=== PATIENT | male | born 1980 | race Caucasian/White ===

== ENCOUNTER 2016-09-18 17:34 | Emergency (ER) | payer BC, OTHER ==
--- NOTE | 2016-09-18 17:45 | ER Document Report ---
ED Medical Screen (RME) - General Stated Complaint: EYE ISSUES Mode of Arrival: Ambulatory Information source: Patient Notes: c/o blurred vision, trouble focusing, dizziness and lightheadedness for the past 2-3 hours. He states this occurs at rest and is intermittent. This has been going on for several years and previously it is associated with difficulty speaking or losing balance but neither of those are occurring now. He states typically the symptoms resolves when he goes to sleep. He is concerned he is having a stroke. He has never been diagnosed with a stroke. Denies any unilateral weakness, slurred speech. Hx of HTN but does not take his medication but denies DM. I have greeted and performed a rapid initial assessment of this patient. A comprehensive ED assessment and evaluation of the patient, analysis of test results and completion of the medical decision making process will be conducted by additional ED providers. TRAVEL OUTSIDE OF THE [place] IN LAST 30 DAYS: No - Related Data Allergies/Adverse Reactions: No Known Allergies Allergy (Verified 08/22/13 11:48) Past Medical History - Past Medical History Cardiac Medical History: Reports: Hx Hypertension - Off and on, no medications. - Immunizations Immunizations up to date: Yes Hx Diphtheria, Pertussis, Tetanus Vaccination: Yes Physical Exam - Vital signs Vitals: Temp Pulse Resp BP Pulse Ox 97.9 F 100 18 148/93 H 95 09/18/16 17:38 09/18/16 17:38 09/18/16 17:38 09/18/16 17:38 09/18/16 17:38 - Notes Notes: Neuro: no pronator drift, no slurred speech, no facial droop, no unilateral weakness. Gait steady. Course - Vital Signs Vital signs: Temp Pulse Resp BP Pulse Ox 97.9 F 100 18 148/93 H 95 09/18/16 17:38 09/18/16 17:38 09/18/16 17:38 09/18/16 17:38 09/18/16 17:38
--- NOTE | 2016-09-18 18:46 | ER Document Report ---
ED General - General Chief Complaint: Dizziness Stated Complaint: EYE ISSUES Mode of Arrival: Ambulatory Notes: Patient is a 36-year-old male without past medical history who presents with concerns of intermittent dizziness. States he had an episode earlier today that has since resolved. He describes this as a sensation of blurred vision and room spinning. States that he has had episodes similar to this in the past several times per week for the past 5 years but usually they are accompanied by a sensation of difficulty speaking. The lack of difficulty speaking today is what prompted him to come to the emergency department He has been evaluated in the emergency department in the past for this but has never followed up with neurology as instructed. Nothing worsens the symptoms when they are present. He states that they tend to be triggered by emotional episodes or if he is feeling very stressed out. He notes that they do resolve if he goes to sleep. He denies any associated chest pain, shortness of breath or vomiting although does note that if he does not go to sleep when the symptoms start he does progress to developing headache with vomiting. TRAVEL OUTSIDE OF THE [place] IN LAST 30 DAYS: No - Related Data Allergies/Adverse Reactions: No Known Allergies Allergy (Verified 08/22/13 11:48) Past Medical History - General Information source: Patient - Social History Smoking Status: Current Every Day Smoker Chew tobacco use (# tins/day): No Frequency of alcohol use: Rare Lives with: Alone Family History: DM - Prior to the diabetes age 34 Patient has suicidal ideation: No Patient has homicidal ideation: No - Past Medical History Cardiac Medical History: Reports: Hx Hypertension - Off and on, no medications. Renal/ Medical History: Denies: Hx Peritoneal Dialysis - Immunizations Immunizations up to date: Yes Hx Diphtheria, Pertussis, Tetanus Vaccination: Yes Review of Systems - Review of Systems Notes: Constitutional: Negative for fever. HENT: Negative for sore throat. Eyes: Negative for visual changes. Cardiovascular: Negative for chest pain. Respiratory: Negative for shortness of breath. Gastrointestinal: Negative for abdominal pain, vomiting or diarrhea. Genitourinary: Negative for dysuria. Musculoskeletal: Negative for back pain. Skin: Negative for rash. Neurological: Negative for headaches, weakness or numbness. 10 point ROS negative except as marked above and in HPI. Physical Exam - Vital signs Vitals: Temp Pulse Resp BP Pulse Ox 97.9 F 100 18 148/93 H 95 09/18/16 17:38 09/18/16 17:38 09/18/16 17:38 09/18/16 17:38 09/18/16 17:38 Interpretation: Hypertensive Notes: PHYSICAL EXAMINATION: GENERAL: Well-appearing, well-nourished and in no acute distress. HEAD: Atraumatic, normocephalic. EYES: Pupils equal round and reactive to light, extraocular movements intact, sclera anicteric, conjunctiva are normal. ENT: nares patent, oropharynx clear without exudates. Moist mucous membranes. NECK: Normal range of motion, supple without lymphadenopathy LUNGS: Breath sounds clear to auscultation bilaterally and equal. No wheezes rales or rhonchi. HEART: Regular rate and rhythm without murmurs ABDOMEN: Soft, nontender, normoactive bowel sounds. No guarding, no rebound. No masses appreciated. EXTREMITIES: Normal range of motion, no pitting or edema. No cyanosis. NEUROLOGICAL: Face symmetric. Tongue protrudes midline. Extraocular motions intact. Pupils are 2 mm and equally reactive. Normal speech, normal gait. 5 out of 5 strength in both the distal and proximal upper and lower extremities bilaterally. Sensation is grossly intact throughout. Finger to nose testing normal. Pronator drift normal. PSYCH: Normal mood, normal affect. SKIN: Warm, Dry, normal turgor, no rashes or lesions noted. Course - Re-evaluation Re-evalutation: 09/18/16 18:41 Patient presents with several years of intermittent episodes in which he has expressive aphasia versus dysarthria, and blurring of vision, and lightheadedness. States he had a similar episode today although he only had blurred vision and his symptoms resolved. Stroke screen is normal and he has an NIH stroke scale of 0. Neurologic exam is completely unremarkable. He reports a clinical history that appears to be most consistent with either complex migraines, vertebrobasilar insufficiency, versus somatizations or panic disorder. Patient does describe the episodes as being acute in onset and resolved by sleeping. Moreover he states that if he does not sleep when these episodes start, his symptoms progress to nausea and vomiting with an associated headache. This would be most consistent with a complex migraine particularly given that his symptoms are intermittent in nature occurring anywhere between several times a week several times per month and to resolve after sleeping. Patient also notes that his symptoms mostly occur when he feels extremely stressed or highly emotional which could point towards a somatization disorder. I do not believe patient's history is consistent with a TIA or stroke. Alternatively he could have a vertebrobasilar insufficiency and I recommended that he start aspirin prophylactically. I've also referred to neurology and informed him about the critical importance of appropriate follow-up should he have a more concerning diagnosis. I do not believe any labs or imaging are indicated as patient is completely asymptomatic at time of my assessment and he has had this problem for 5-6 years.At this time will discharge with return precautions and follow-up recommendations. Verbal discharge instructions given a the bedside and opportunity for questions given. Medication warnings reviewed. Patient is in agreement with this plan and has verbalized understanding of return precautions and the need for primary care follow-up in the next 24-72 hours. - Vital Signs Vital signs: Temp Pulse Resp BP Pulse Ox 98.3 F 99 20 150/103 H 95 09/18/16 19:00 09/18/16 19:00 09/18/16 19:00 09/18/16 19:00 09/18/16 19:00 - Laboratory Result Diagrams: 09/18/16 17:50 09/18/16 17:50 Discharge - Discharge Clinical Impression: Dizziness, Blurring of vision Condition: Good Disposition: HOME, SELF-CARE Additional Instructions: Your symptoms today need to be better evaluated by a neurologist. Please call the neurologist included in your discharge paperwork tomorrow morning and schedule an appointment as soon as possible. Please also follow up with your primary care doctor. Begin taking aspirin 81 mg daily. Return to the emergency department immediately if you develop persistent weakness, numbness, difficulty speaking, pass out, or have any other symptoms that are worrisome to you. Referrals: KARLO YOUNGER MD [ACTIVE STAFF] - Follow up in 3-5 days
[2016-09-18 19:00] VITALS: BP 150/103
== END 2016-09-18 18:58 | disposition home or self-care (01) ==
LOC: ER 17:34
DX: R42 Dizziness and giddiness (principal); H53.8 Other visual disturbances; R29.818 Other symptoms and signs involving the nervous system; F17.200 Nicotine dependence, unspecified, uncomplicated; I10 Essential (primary) hypertension
CPT/HCPCS: 99284

== ENCOUNTER 2018-05-04 13:11 | Emergency (ER) | payer OTHER ==
[2018-05-04 13:22] VITALS: BP 141/91
[2018-05-04] MEDS ORDERED: LORAZEPAM 1 MG TABLET PO ONE (13:24)
[2018-05-04] MEDS ORDERED: DEXAMETHASONE SOD PHOS INJ 10 MG/1 ML VIAL IM ONE (13:24)
[2018-05-04] MEDS ORDERED: LIDOCAINE 5% (700 MG) TRANSDERMAL ADH..PATCH TP ONE (13:24)
[2018-05-04] MEDS ORDERED: KETOROLAC TROMETHAMINE 60 MG/2 ML SDV IM ONE (13:24)
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
== END 2018-05-04 14:20 | disposition home or self-care (01) ==
LOC: ER 13:11
DX: M54.5 Low back pain (principal); V49.40XA Driver injured in collision with unspecified motor vehicles in traffic accident, initial encounter; G89.29 Other chronic pain; R25.2 Cramp and spasm; I10 Essential (primary) hypertension; F41.9 Anxiety disorder, unspecified; F17.200 Nicotine dependence, unspecified, uncomplicated
CPT/HCPCS: 99283; 96372; J1885; J1100

== ENCOUNTER 2018-08-11 09:45 | Inpatient (IN) | payer BC, OTHER ==
--- NOTE | 2018-08-11 11:13 | ER Document Report ---
ED Medical Screen (RME) - General Chief Complaint: Foot Pain Stated Complaint: LEFT FOOT PAIN Time Seen by Provider: 08/11/18 11:07 Primary Care Provider: MIKE RAMIREZ DO [Primary Care Provider] - Follow up as needed Notes: 38-year-old male patient stepped on a nail 2 weeks ago. His primary care provider prescribed Augmentin and 5 mg Percocet on 07/30/2018. This is in addition to the Percocet 10 mg he takes 4 times daily on a chronic basis. He states there is still swelling and the pain is not improved. The wound was not explored. I have greeted and performed a rapid initial assessment of this patient. A comprehensive ED assessment and evaluation of the patient, analysis of test results and completion of the medical decision making process will be conducted by additional ED providers. TRAVEL OUTSIDE OF THE [place] IN LAST 30 DAYS: No - Related Data Allergies/Adverse Reactions: No Known Allergies Allergy (Verified 08/11/18 09:48) Past Medical History - Social History Chew tobacco use (# tins/day): No Frequency of alcohol use: None Drug Abuse: None - Past Medical History Cardiac Medical History: Reports: Hx Hypertension - Off and on, no medications. Renal/ Medical History: Denies: Hx Peritoneal Dialysis - Immunizations Immunizations up to date: Yes Hx Diphtheria, Pertussis, Tetanus Vaccination: Yes Physical Exam - Vital signs Vitals: Temp Pulse Resp BP Pulse Ox 97.8 F 117 H 18 140/95 H 97 08/11/18 09:51 08/11/18 09:51 08/11/18 09:51 08/11/18 09:51 08/11/18 09:51 Course - Vital Signs Vital signs: Temp Pulse Resp BP Pulse Ox 97.8 F 117 H 18 140/95 H 97 08/11/18 09:51 08/11/18 09:51 08/11/18 09:51 08/11/18 09:51 08/11/18 09:51 Doctor's Discharge - Discharge Referrals: MIKE RAMIREZ DO [Primary Care Provider] - Follow up as needed
--- NOTE | 2018-08-11 12:01 | RADIOLOGY REPORT (SQ) ---
EXAM DESCRIPTION: FOOT RIGHT COMPLETE COMPLETED DATE/TIME: 08/11/2018 11:48 am REASON FOR STUDY: stepped on nail 2 weeks ago COMPARISON: None. NUMBER OF VIEWS: Three views. TECHNIQUE: AP, lateral and oblique radiographic images acquired of the foot with radiographic left markers. LIMITATIONS: None. FINDINGS: MINERALIZATION: Normal. BONES: No acute fracture or dislocation. No worrisome bone lesions. JOINTS: No effusions. SOFT TISSUES: Soft tissue swelling over the ball of the foot. No radiopaque foreign body. OTHER: No other significant finding. IMPRESSION: 1. No fracture or dislocation of the left foot. Soft tissue swelling over the ball of the foot without radiopaque foreign body. No radiographic evidence of osteomyelitis. Please note th at MRI is more sensitive for the evaluation of soft tissue infection and osteomyelitis. 2. Technical note: Examination is ordered and documented as radiographs the right foot, images are submitted with radiographic left markers. TECHNICAL DOCUMENTATION: JOB ID: [id number] [employer]- All Rights Reserved Reading location - IP/workstation name: [email or web address]
--- NOTE | 2018-08-11 12:36 | ER Document Report ---
ED General - General Chief Complaint: Foot Pain Stated Complaint: LEFT FOOT PAIN Time Seen by Provider: 08/11/18 11:07 Notes: Patient is a 38-year-old male that presents to the emergency department for chief complaint of left foot pain after stepping on a nail. Patient states that he suffered a puncture wound about 2 weeks ago to his left foot from a nail that he stepped on he was wearing shoes at the time, he was prescribed Augmentin by h is primary care for a week, which did seem to help with the swelling but his pain continues, and the swelling is come back most of the pain is in his left great toe and at the metatarsal phalangeal joint. He states it is painful to walk on, has been using crutches to help with this. He currently rates his pain as a 6 out of 10, worse with walking on describes as a dull aching sensation that is constant. Past Medical History: Denies chronic medical conditions Past Surgical History: Denies surgical history Social History: Admits to smoking cigarettes daily, denies alcohol or drug use. Family History: Reviewed and noncontributory for presenting illness Allergies: Reviewed, see documented allergy list. REVIEW OF SYSTEMS: Other than noted above, the 12 point review of systems was reviewed with the patient and were negative, all pertinent findings are included in the HPI. PHYSICAL EXAMINATION: Vital signs reviewed, nursing noted reviewed. GENERAL: Well-appearing, well-nourished and in no acute distress. HEAD: Atraumatic, normocephalic. EYES: Eyes appear normal, extraocular movements intact, sclera anicteric, conjunctiva are normal. ENT: nares patent, oropharynx clear without exudates. Moist mucous membranes. NECK: Normal range of motion, supple without lymphadenopathy LUNGS: Breath sounds clear to auscultation bilaterally and equal. No wheezes rales or rhonchi. HEART: Regular rate and rhythm without murmurs ABDOMEN: Soft, nontender, normoactive bowel sounds. No rebound, guarding, or rigidity. No masses appreciated. EXTREMITIES: There is mild tenderness to palpation over the left first metatarsophalangeal joint, and pain with range of motion, mild ecchymosis noted to this area as well as well as edema, there is also tenderness to palpation over the ball of the foot, there is a minimal healing puncture site measuring only a few millimeters in width over the ball the foot, otherwise no acute drainage, or erythema at that site, and mild tenderness only to palpation. Rest of the patient's extremity exam is grossly unremarkable. There is no erythema or lymphangitis noted on the foot. NEUROLOGICAL: No focal neurological deficits. Moves all extremities spontaneously Motor and sensory grossly intact on exam. PSYCH: Normal mood, normal affect. SKIN: Warm, Dry, normal turgor, no rashes or lesions noted on exposed skin TRAVEL OUTSIDE OF THE [place] IN LAST 30 DAYS: No - Related Data Allergies/Adverse Reactions: No Known Allergies Allergy (Verified 08/11/18 09:48) Past Medical History - Social History Smoking Status: Current Every Day Smoker Chew tobacco use (# tins/day): No Frequency of alcohol use: None Drug Abuse: None Family History: DM - Prior to the diabetes age 34 Patient has suicidal ideation: No Patient has homicidal ideation: No - Past Medical History Cardiac Medical History: Reports: Hx Hypertension - Off and on, no medications. Renal/ Medical History: Denies: Hx Peritoneal Dialysis - Immunizations Immunizations up to date: Yes Hx Diphtheria, Pertussis, Tetanus Vaccination: Yes Physical Exam - Vital signs Vitals: Temp Pulse Resp BP Pulse Ox 97.8 F 117 H 18 140/95 H 97 08/11/18 09:51 08/11/18 09:51 08/11/18 09:51 08/11/18 09:51 08/11/18 09:51 Course - Re-evaluation Re-evalutation: Patient seen and examined vital signs reviewed. Laboratory data and imaging were ordered as appropriate for the patient's presenting symptoms and complaint, with consideration of any critical or life threatening conditions that may be associated with their obtained history and exam as noted above. Patient was treated with IV morphine and Zofran for pain initially Results were reviewed when available and demonstrated mild leukocytosis, and elevated ESR and CRP, but only mildly elevated, clinically though this patient's exam and clinical history is concerning for possible septic arthritis versus osteomyelitis from his puncture wound from a dirty nail, and persistent pain and swelling over 2 weeks. Therefore decided to pursue obtaining an MRI of the foot, which was concerning for possible septic arthritis of the first metatarsophalangeal joint of the left foot, and osteomyelitis of the distal portion of the first metatarsal. The patient was re-evaluated and was improved, he was started on IV Zosyn and vancomycin to cover for Pseudomonas as well as MRSA Evaluation was most consistent with acute septic arthritis of the first metatarsal joint, and acute osteomyelitis, orthopedics was consulted, and will decide if operative intervention is needed tomorrow. Results were discussed with the patient at this point after careful consideration I feel that that patient should be admitted to the hospital. This was discussed with the patient that it is in the best interest for their care to be admitted for further evaluation and management. Patient agreed with this plan of care. A call was placed to the admitted physician, Dr. Masterson who graciously accepted the patient onto their service. *Note is created using voice recognition software and may contain spelling, syntax or grammatical errors. Laboratory 08/11/18 08/11/18 08/11/18 13:19 13:19 13:19 WBC 12.5 H RBC 5.27 Hgb 14.9 Hct 44.3 MCV 84 MCH 28.3 MCHC 33.6 RDW 13.3 Plt Count 427 Seg Neutrophils % 62.1 Lymphocytes % 30.5 Monocytes % 5.5 Eosinophils % 1.2 Basophils % 0.7 Absolute Neutrophils 7.7 Absolute Lymphocytes 3.8 Absolute Monocytes 0.7 Absolute Eosinophils 0.1 Absolute Basophils 0.1 ESR 32 H Sodium 138.6 Potassium 4.8 Chloride 103 Carbon Dioxide 24 Anion Gap 12 BUN 16 Creatinine 0.64 Est GFR ( Amer) > 60 Est GFR (Non-Af Amer) > 60 Glucose 162 H Hemoglobin A1c % Calcium 10.0 Total Bilirubin 0.2 Direct Bilirubin 0.2 Neonat Total Bilirubin Not Reportable Neonat Direct Bilirubin Not Reportable Neonat Indirect Bili Not Reportable AST 17 ALT 31 Alkaline Phosphatase 133 H C-Reactive Protein 13.0 H Total Protein 7.2 Albumin 4.3 Triglycerides 116 Cholesterol 213.09 H LDL Cholesterol Direct 183 H VLDL Cholesterol 23.0 HDL Cholesterol 33 L 08/11/18 13:19 WBC RBC Hgb Hct MCV MCH MCHC RDW Plt Count Seg Neutrophils % Lymphocytes % Monocytes % Eosinophils % Basophils % Absolute Neutrophils Absolute Lymphocytes Absolute Monocytes Absolute Eosinophils Absolute Basophils ESR Sodium Potassium Chloride Carbon Dioxide Anion Gap BUN Creatinine Est GFR ( Amer) Est GFR (Non-Af Amer) Glucose Hemoglobin A1c % 7.3 H Calcium Total Bilirubin Direct Bilirubin Neonat Total Bilirubin Neonat Direct Bilirubin Neonat Indirect Bili AST ALT Alkaline Phosphatase C-Reactive Protein Total Protein Albumin Triglycerides Cholesterol LDL Cholesterol Direct VLDL Cholesterol HDL Cholesterol Foot X-Ray 08/11/18 11:23 IMPRESSION: 1. No fracture or dislocation of the left foot. Soft tissue swelling over the ball of the foot without radiopaque foreign body. No radiographic evidence of osteomyelitis. Please note that MRI is more sensitive for the evaluation of soft tissue infection and osteomyelitis. 2. Technical note: Examination is ordered and documented as radiographs the right foot, images are submitted with radiographic left markers. Lower Extremity MRI 08/11/18 14:49 IMPRESSION: Abnormal bone marrow signal in the plantar aspect of the 1st metatarsal head worrisome for osteomyelitis. 1st metatarsophalangeal joint effusion worrisome for septic arthritis. Soft tissue edema in the deep forefoot soft tissues surrounding the 1st metatarsophalangeal joint without soft tissue abscess. - Vital Signs Vital signs: Temp Pulse Resp BP Pulse Ox 98.8 F 103 H 16 137/72 H 95 08/11/18 18:26 08/11/18 18:26 08/11/18 18:26 08/11/18 18:26 08/11/18 18:26 - Laboratory Result Diagrams: 08/11/18 13:19 08/11/18 13:19 Laboratory results interpreted by me: 08/11/18 08/11/18 08/11/18 13:19 13:19 13:19 WBC 12.5 H ESR 32 H Glucose 162 H Hemoglobin A1c % Alkaline Phosphatase 133 H C-Reactive Protein 13.0 H Cholesterol 213.09 H LDL Cholesterol Direct 183 H HDL Cholesterol 33 L 08/11/18 13:19 WBC ESR Glucose Hemoglobin A1c % 7.3 H Alkaline Phosphatase C-Reactive Protein Cholesterol LDL Cholesterol Direct HDL Cholesterol Discharge - Discharge Clinical Impression: Septic arthritis Qualifiers: Septic arthritis location: foot Septic arthritis organism: due to unspecified organism Laterality: left Qualified Code(s): M00.9 - Pyogenic arthritis, unspecified Osteomyelitis Qualifiers: Osteomyelitis type: other acute Osteomyelitis location: foot Laterality: left Qualified Code(s): M86.172 - Other acute osteomyelitis, left ankle and foot Leukocytosis Qualifiers: Leukocytosis type: unspecified Qualified Code(s): D72.829 - Elevated white blood cell count, unspecified Condition: Stable Disposition: ADMITTED INPATIENT Admitting Provider: Hospitalist - Dr. Masterson Unit Admitted: Medical Floor
[2018-08-11 14:01] LABS: ABSOLUTE BASOPHILS # (AUTO) 0.1 10^3/uL (0.0-0.2); ABSOLUTE EOSINOPHILS # (AUTO) 0.1 10^3/uL (0.0-0.6); ABSOLUTE LYMPHOCYTES (AUTO) 3.8 10^3/uL (0.5-4.7); ABSOLUTE MONOCYTES (AUTO) 0.7 10^3/uL (0.1-1.4); ABSOLUTE NEUT (AUTO) 7.7 10^3/uL (1.7-8.2); BASOPHILS % (AUTO) 0.7 % (0-2); EOSINOPHILS % (AUTO) 1.2 % (0-6); HEMATOCRIT 44.3 % (37.9-51.0); HEMOGLOBIN 14.9 g/dL (13.5-17.0); LYMPHOCYTES % (AUTO) 30.5 % (13-45); MEAN CORPUSCULAR HEMOGLOBIN 28.3 pg (27.0-33.4); MEAN CORPUSCULAR HGB CONC 33.6 g/dL (32.0-36.0); MEAN CORPUSCULAR VOLUME 84 fl (80-97); MONOCYTES % (AUTO) 5.5 % (3-13); PLATELET COUNT 427 10^3/uL (150-450); RED BLOOD COUNT 5.27 10^6/uL (4.35-5.55); RED CELL DISTRIBUTION WIDTH 13.3 % (11.5-14.0); SEGMENTED NEUTROPHILS % (AUTO) 62.1 % (42-78); TOTAL CELLS COUNTED % (AUTO) 100 %; WHITE BLOOD COUNT 12.5 10^3/uL (4.0-10.5)
[2018-08-11 14:44] LABS: ERYTHROCYTE SEDIMENTATION RATE 32 mm/hr (0-15)
--- NOTE | 2018-08-11 17:01 | RADIOLOGY REPORT (SQ) ---
EXAM DESCRIPTION: MRI LT LOWER EXTREMITY WITHOUT COMPLETED DATE/TIME: 08/11/2018 4:36 pm REASON FOR STUDY: right foot injury concern for osteomyelitis TECHNIQUE: Multiplanar imaging of the left forefoot to include fat and fluid sensitive sequences. LIMITATIONS: Motion artifact throughout the study FINDINGS: BONE MARROW: There is abnormal bone marrow signal in the plantar aspect of the 1st metatar rito head, best shown on coronal image 19/32, and axial images 15 through 17. This is worrisome for i nfection/osteomyelitis. SOFT TISSUES: There is edema in the deep soft tissues surrounding the 1st metatarsal head, and a 1st MTP joint effusion, best shown on sagittal images 9-15. No fluid pocket worrisome for soft tissue ab scess. OTHER: No other significant finding. IMPRESSION: Abnormal bone marrow signal in the plantar aspect of the 1st metatarsal head worrisome f or osteomyelitis. 1st metatarsophalangeal joint effusion worrisome for septic arthritis. Soft tissue edema in the deep forefoot soft tissues surrounding the 1st metatarsophalangeal joint wit hout soft tissue abscess. TECHNICAL DOCUMENTATION: JOB ID: [id number]- All Rights Reserved COMPARISON: None. 08/11/2018 left foot plain films Reading location - IP/workstation name: [email or web address]
[2018-08-11] MEDS ORDERED: PIPERACILLIN/TAZOBACTAM 3.375 GM VIAL IV ONE (17:35)
[2018-08-11] MEDS ORDERED: VANCOMYCIN HCL INJ 1000 MG VIAL IV ONE (17:35)
[2018-08-11] MEDS ORDERED: MORPHINE SULFATE 10 MG/ML INJ IV ONE (17:36)
[2018-08-11] MEDS ORDERED: ONDANSETRON HCL INJ/PF 4 MG/2 ML SDV IV ONE (17:36)
--- NOTE | 2018-08-11 18:33 | PDOC H&P ---
History of Present Illness Admission Date/PCP: 08/11/18 18:16 MIKE RAMIREZ DO History of Present Illness: RENO ROD is a 38 year old male past medical history of hypertension not treated. Patient is presenting to ED complaining of stepping on a nail with his right big toe about 2 weeks ago. Patient went to see his primary caregiver who started him on Augmentin and he was told if his pain and swelling does not get better to go to ED. Patient is complaining of persistent right great toe pain 10 out of 10, pulsating, decreased range of motion. Patient has been using crutches to ambulate. Patient was given tetanus shot by his PCP. Denying any other joint pain, swelling, fever, chills, nausea, vomiting, diarrhea, constipation or any urinary symptoms. Osteomyelitis was suspected in ED and an MRI of right foot was done which showed first metatarsal head worrisome for septic arthritis/osteomyelitis. Past Medical History Cardiac Medical History: Reports: Hypertension - Off and on, no medications. Social History Smoking Status: Current Every Day Smoker Family History Family History: DM - Prior to the diabetes age 36 Parental Family History Reviewed: Yes Children Family History Reviewed: Yes Sibling(s) Family History Reviewed.: Yes Medication/Allergy Home Medications: Dextroamphetamine/Amphetamine [Adderall 30 mg Tablet] 30 mg PO BID 08/11/18 Oxycodone HCl/Acetaminophen [Percocet 10-325 Mg Tablet] 1 each PO Q6HP PRN 08/11/18 Allergies/Adverse Reactions: No Known Allergies Allergy (Verified 08/11/18 09:48) Review of Systems Constitutional: ABSENT: chills, fever(s), headache(s), weight gain, weight loss Cardiovascular: ABSENT: chest pain, dyspnea on exertion, edema, orthropnea, palpitations Respiratory: ABSENT: cough, hemoptysis Gastrointestinal: ABSENT: abdominal pain, constipation, diarrhea, hematemesis, hematochezia, nausea, vomiting Neurological: ABSENT: abnormal gait, abnormal speech, confusion, dizziness, focal weakness, syncope Physical Exam Vital Signs: Temp Pulse Resp BP Pulse Ox 97.8 F 117 H 18 140/95 H 97 08/11/18 09:51 08/11/18 09:51 08/11/18 09:51 08/11/18 09:51 08/11/18 09:51 Intake & Output 08/10/18 08/11/18 08/12/18 06:59 06:59 06:59 Weight 112 kg General appearance: PRESENT: no acute distress, obese, well-developed, well- nourished Head exam: PRESENT: atraumatic, normocephalic Neck exam: ABSENT: carotid bruit, JVD, lymphadenopathy, thyromegaly Respiratory exam: PRESENT: clear to auscultation aubree. ABSENT: rales, rhonchi, wheezes Cardiovascular exam: PRESENT: RRR. ABSENT: diastolic murmur, rubs, systolic murmur Pulses: PRESENT: normal dorsalis pedis pul Vascular exam: PRESENT: normal capillary refill GI/Abdominal exam: PRESENT: normal bowel sounds, soft. ABSENT: distended, guarding, mass, organolmegaly, rebound, tenderness Extremities exam: PRESENT: full ROM, other - Right great toe minimal erythema, limited range of motion, no active discharge. Normal distal pulses.. ABSENT: calf tenderness, clubbing, pedal edema Results Laboratory Results: 08/11/18 13:19 08/11/18 08/11/18 13:19 13:19 WBC 12.5 H RBC 5.27 Hgb 14.9 Hct 44.3 MCV 84 MCH 28.3 MCHC 33.6 RDW 13.3 Plt Count 427 Seg Neutrophils % 62.1 Lymphocytes % 30.5 Monocytes % 5.5 Eosinophils % 1.2 Basophils % 0.7 Absolute Neutrophils 7.7 Absolute Lymphocytes 3.8 Absolute Monocytes 0.7 Absolute Eosinophils 0.1 Absolute Basophils 0.1 C-Reactive Protein 13.0 H Impressions: Foot X-Ray 08/11/18 11:23 IMPRESSION: 1. No fracture or dislocation of the left foot. Soft tissue swelling over the ball of the foot without radiopaque foreign body. No radiographic evidence of osteomyelitis. Please note that MRI is more sensitive for the evaluation of soft tissue infection and osteomyelitis. 2. Technical note: Examination is ordered and documented as radiographs the right foot, images are submitted with radiographic left markers. Lower Extremity MRI 08/11/18 14:49 IMPRESSION: Abnormal bone marrow signal in the plantar aspect of the 1st metatarsal head worrisome for osteomyelitis. 1st metatarsophalangeal joint effusion worrisome for septic arthritis. Soft tissue edema in the deep forefoot soft tissues surrounding the 1st metatarsophalangeal joint without soft tissue abscess. Assessment & Plan - Diagnosis (1) Osteomyelitis Qualifiers: Osteomyelitis type: other acute Osteomyelitis location: foot Laterality: left Qualified Code(s): M86.172 - Other acute osteomyelitis, left ankle and foot Is this a current diagnosis for this admission?: Yes Plan: Right great toe MRI suspected of osteomyelitis. Minimal leukocytosis with no bandemia. CRP 13.0. Broad-spectrum IV antibiotics. Blood cultures. Ortho consulted for possible intervention.. Will order A1c, lipid panel, CMP. (2) Septic arthritis Qualifiers: Septic arthritis location: foot Septic arthritis organism: due to unspecified organism Laterality: left Qualified Code(s): M00.9 - Pyogenic arthritis, unspecified Is this a current diagnosis for this admission?: Yes Plan: As per problem #1. (3) Obesity Is this a current diagnosis for this admission?: Yes Plan: Diet and lifestyle modification. A1c and lipid panel. (4) HTN (hypertension) Is this a current diagnosis for this admission?: Yes Plan: As per patient has history of hypertension however he is not on any medication. Monitor vital status will start on antihypertensive medications if needed.
[2018-08-11] MEDS ORDERED: PROMETHAZINE HCL 25 MG TABLET PO PRN (18:37)
[2018-08-11] MEDS ORDERED: VANCOMYCIN HCL 0 MG in DEXTROSE 5%-WATER 250 ML IV NR (18:45)
[2018-08-11 18:47] LABS: ALANINE AMINOTRANSFERASE 31 U/L (21-72); ALBUMIN 4.3 g/dL (3.5-5.0); ALKALINE PHOSPHATASE 133 U/L (38-126); ANION GAP 12 (5-19); ASPARTATE AMINO TRANSFERASE 17 U/L (17-59); BILIRUBIN,DIRECT 0.2 mg/dL (0.0-0.4); BILIRUBIN,TOTAL 0.2 mg/dL (0.2-1.3); BLOOD UREA NITROGEN 16 mg/dL (7-20); CARBON DIOXIDE 24 mmol/L (22-30); CHLORIDE 103 mmol/L (98-107); CHOLESTEROL 213.09 mg/dL (0-200); GLUCOSE 162 mg/dL (75-110); POTASSIUM 4.8 mmol/L (3.6-5.0); SODIUM 138.6 mmol/L (137-145); TOTAL PROTEIN 7.2 g/dL (6.3-8.2); TRIGLYCERIDES 116 mg/dL (<150)
[2018-08-11 18:59] LABS: DIRECT LDL 183 mg/dL (<100)
[2018-08-11] MEDS: ENOXAPARIN SODIUM INJ 40 MG/0.4 ML DISP.SYRIN SUBCUT SCH (21:40)
[2018-08-11] MEDS: MORPHINE SULFATE 10 MG/ML INJ IV PRN (21:40)
[2018-08-12] MEDS: PIPERACILLIN SODIUM/TAZOBACTAM 4.5 GM in NORMAL SALINE 100 ML IV SCH ×4 (00:43→18:50)
[2018-08-12] MEDS: MORPHINE SULFATE 10 MG/ML INJ IV PRN ×8 (00:47→21:22)
[2018-08-12] MEDS: VANCOMYCIN HCL 1,500 MG in DEXTROSE 5%-WATER 250 ML IV SCH ×4 (02:43→21:22)
[2018-08-12] MEDS ORDERED: LANSOPRAZOLE 30 MG TAB.RAP.DR PO SCH (06:00)
[2018-08-12 06:22] LABS: HEMATOCRIT 40.6 % (37.9-51.0); HEMOGLOBIN 13.4 g/dL (13.5-17.0); MEAN CORPUSCULAR HEMOGLOBIN 27.9 pg (27.0-33.4); MEAN CORPUSCULAR HGB CONC 33.2 g/dL (32.0-36.0); MEAN CORPUSCULAR VOLUME 84 fl (80-97); PLATELET COUNT 396 10^3/uL (150-450); RED BLOOD COUNT 4.83 10^6/uL (4.35-5.55); RED CELL DISTRIBUTION WIDTH 13.4 % (11.5-14.0); WHITE BLOOD COUNT 13.3 10^3/uL (4.0-10.5)
--- NOTE | 2018-08-12 06:45 | PDOC CONSULTATION ---
Consultation Consult Date: 08/12/18 Consult reason:: Puncture wound left foot History of Present Illness Admission Date/PCP: 08/11/18 18:16 MIKE RAMIREZ DO History of Present Illness: RENO ROD is a 38 year old male Patient is a 38-year-old white male who presents status post a puncture wound to the plantar surface of the right foot increasing pain about the left forefoot. He was evaluated in the emergency room with a sedimentation rate of 32, CRP of 13, hemoglobin A1c of 7.3, and an MRI scan suggesting osteomyelitis. Orthopedics is consulted to cooperate with management of the infection and osteomyelitis. Past Medical History Cardiac Medical History: Reports: Hypertension - Off and on, no medications. Endocrine Medical History: Reports: Diabetes Mellitus Type 2 Past Surgical History Past Surgical History: Reports: None Social History Information Source: Patient, [facility] Records Smoking Status: Current Every Day Smoker Drugs: None Family History Family History: DM - Prior to the diabetes age 36 Parental Family History Reviewed: No Children Family History Reviewed: No Sibling(s) Family History Reviewed.: No Medication/Allergy Home Medications: Dextroamphetamine/Amphetamine [Adderall 30 mg Tablet] 30 mg PO BID 08/11/18 Oxycodone HCl/Acetaminophen [Percocet 10-325 Mg Tablet] 1 each PO Q6HP PRN 08/11/18 Allergies/Adverse Reactions: No Known Allergies Allergy (Verified 08/11/18 20:53) Review of Systems All systems: as per [facility] Physical Exam Vital Signs: Temp Pulse Resp BP Pulse Ox 36.8 C 91 18 117/70 97 08/11/18 21:44 08/11/18 21:44 08/11/18 21:44 08/11/18 21:44 08/11/18 21:44 Intake & Output 08/10/18 08/11/18 08/12/18 06:59 06:59 06:59 Intake Total 350 Balance 350 Weight 112 kg Physical Exam: Patient is an overweight middle-aged white male lying in a hospital bed with a significant odor of tobacco. Patient does not appear to be in significant distress at this point. General appearance: PRESENT: no acute distress, obese, well-nourished Respiratory exam: PRESENT: unlabored Cardiovascular exam: PRESENT: RRR Pulses: PRESENT: +1 pedal pulses bilateral Vascular exam: PRESENT: normal capillary refill GI/Abdominal exam: PRESENT: soft Rectal exam: PRESENT: deferred Extremities exam: PRESENT: other - The puncture wound on the plantar surface of the left foot in the region of the tarsometatarsal is evident. There is really not surrounding erythema or induration. There is no drainage. There is tenderness to palpation. There is some pain associate with passive range of motion of the digits. There is brisk capillary refill. Neurological exam: PRESENT: alert, awake, oriented to person, oriented to place, oriented to time, oriented to situation. ABSENT: motor sensory deficit Psychiatric exam: PRESENT: appropriate affect, normal mood. ABSENT: homicidal ideation, suicidal ideation Skin exam: PRESENT: dry, intact, warm. ABSENT: cyanosis, rash Results Laboratory Results: 08/12/18 06:06 08/11/18 08/11/18 08/11/18 13:19 13:19 13:19 WBC 12.5 H RBC 5.27 Hgb 14.9 Hct 44.3 MCV 84 MCH 28.3 MCHC 33.6 RDW 13.3 Plt Count 427 Seg Neutrophils % 62.1 Lymphocytes % 30.5 Monocytes % 5.5 Eosinophils % 1.2 Basophils % 0.7 Absolute Neutrophils 7.7 Absolute Lymphocytes 3.8 Absolute Monocytes 0.7 Absolute Eosinophils 0.1 Absolute Basophils 0.1 Sodium 138.6 Potassium 4.8 Chloride 103 Carbon Dioxide 24 Anion Gap 12 BUN 16 Creatinine 0.64 Est GFR ( Amer) > 60 Est GFR (Non-Af Amer) > 60 Glucose 162 H Calcium 10.0 Total Bilirubin 0.2 AST 17 ALT 31 Alkaline Phosphatase 133 H C-Reactive Protein 13.0 H Total Protein 7.2 Albumin 4.3 Triglycerides 116 Cholesterol 213.09 H LDL Cholesterol Direct 183 H VLDL Cholesterol 23.0 HDL Cholesterol 33 L 08/12/18 06:06 WBC 13.3 H RBC 4.83 Hgb 13.4 L Hct 40.6 MCV 84 MCH 27.9 MCHC 33.2 RDW 13.4 Plt Count 396 Seg Neutrophils % Lymphocytes % Monocytes % Eosinophils % Basophils % Absolute Neutrophils Absolute Lymphocytes Absolute Monocytes Absolute Eosinophils Absolute Basophils Sodium Potassium Chloride Carbon Dioxide Anion Gap BUN Creatinine Est GFR ( Amer) Est GFR (Non-Af Amer) Glucose Calcium Total Bilirubin AST ALT Alkaline Phosphatase C-Reactive Protein Total Protein Albumin Triglycerides Cholesterol LDL Cholesterol Direct VLDL Cholesterol HDL Cholesterol Impressions: Foot X-Ray 08/11/18 11:23 IMPRESSION: 1. No fracture or dislocation of the left foot. Soft tissue swell ing over the ball of the foot without radiopaque foreign body. No radiographic evidence of osteomyelitis. Please note that MRI is more sensitive for the evaluation of soft tissue infection and osteomyelitis. 2. Technical note: Examination is ordered and documented as radiographs the right foot, images are submitted with radiographic left markers. Lower Extremity MRI 08/11/18 14:49 IMPRESSION: Abnormal bone marrow signal in the plantar aspect of the 1st metatarsal head worrisome for osteomyelitis. 1st metatarsophalangeal joint effusion worrisome for septic arthritis. Soft tissue edema in the deep forefoot soft tissues surrounding the 1st metatarsophalangeal joint without soft tissue abscess. Status: Imported from PACS Assessment & Plan - Diagnosis (1) Osteomyelitis Qualifiers: Osteomyelitis type: other acute Osteomyelitis location: foot Laterality: left Qualified Code(s): M86.172 - Other acute osteomyelitis, left ankle and foot Is this a current diagnosis for this admission?: Yes Plan: 38-year-old white male diabetic with a puncture wound to the plantar surface of the left foot increasing pain, slightly elevated inflammatory parameters, slightly elevated hemoglobin A1c, and an MRI scan showing increased signal suggesting underlying osteomyelitis. Overall the physical examination is not particularly impressive. However if the patient does have an underlying mass it is the treatment for this is primarily surgical to remove the sequestrum. I will discuss the situation with Dr. streeter who is coming area loss prevention manager today. - Time Time Spent: 50 to 70 Minutes Anticipated discharge: Home with Homehealth Within: Other
[2018-08-12 06:46] LABS: ANION GAP 7 (5-19); BLOOD UREA NITROGEN 16 mg/dL (7-20); CALCIUM 9.2 mg/dL (8.4-10.2); CARBON DIOXIDE 27 mmol/L (22-30); CHLORIDE 102 mmol/L (98-107); GLUCOSE 127 mg/dL (75-110); POTASSIUM 4.6 mmol/L (3.6-5.0); SODIUM 136.2 mmol/L (137-145)
[2018-08-12] MEDS: ENOXAPARIN SODIUM INJ 40 MG/0.4 ML DISP.SYRIN SUBCUT SCH (09:07)
[2018-08-12] MEDS: NICOTINE 21 MG/24 HR PATCH.TD24 TD SCH (10:55)
[2018-08-12] MEDS ORDERED: GLUCAGON,HUMAN RECOMB 1 MG INJ IM PRN (11:01)
[2018-08-12] MEDS ORDERED: DEXTROSE 40% GEL 15 GM TUBE PO PRN ×2 (11:01)
[2018-08-12] MEDS ORDERED: DEXTROSE 50%-WATER 25 GM/50 ML DISP.SYRIN IV PRN ×2 (11:01)
[2018-08-12] MEDS: INSULIN LISPRO 100 UNIT/ML 3 ML VIAL SUBCUT PRN (12:09)
[2018-08-12] MEDS: OXYCODONE-ACETAMINOPHEN 5-325 MG TABLET PO PRN ×2 (12:11→19:52)
[2018-08-12] MEDS ORDERED: NICOTINE 21 MG/24 HR PATCH.TD24 TD ONE (15:00)
--- NOTE | 2018-08-12 18:19 | PDOC PROGRESS REPORT ---
Subjective Progress Note for:: 08/12/18 Subjective:: Patient resting comfortably in bed. Only complaint is weightbearing on the left foot at the first MTP joint. Reason For Visit: OSTEOMYELITIS Physical Exam Vital Signs: Temp Pulse Resp BP Pulse Ox 36.5 C 85 16 112/66 97 08/12/18 11:23 08/12/18 11:23 08/12/18 11:23 08/12/18 11:23 08/12/18 11:23 Intake & Output 08/11/18 08/12/18 08/13/18 06:59 06:59 06:59 Intake Total 350 700 Balance 350 700 Weight 99.3 kg Adult Front & Back Image: 1 - Some mild erythema about 1 cm in diameter on the low medial aspect of the f irst MTP joint with tenderness to palpation on the plantar aspect of the first MTP joint. Range of motion of the first MTP joint is somewhat painful. He is neurovascular intact distally and very little swelling noticed with no fluctuance or mass palpated Results Laboratory Results: 08/12/18 06:06 08/12/18 06:06 08/11/18 08/12/18 08/12/18 13:19 06:06 06:06 WBC 13.3 H RBC 4.83 Hgb 13.4 L Hct 40.6 MCV 84 MCH 27.9 MCHC 33.2 RDW 13.4 Plt Count 396 Sodium 138.6 136.2 L Potassium 4.8 4.6 Chloride 103 102 Carbon Dioxide 24 27 Anion Gap 12 7 BUN 16 16 Creatinine 0.64 0.81 Est GFR ( Amer) > 60 > 60 Est GFR (Non-Af Amer) > 60 > 60 Glucose 162 H 127 H Calcium 10.0 9.2 Total Bilirubin 0.2 AST 17 ALT 31 Alkaline Phosphatase 133 H Total Protein 7.2 Albumin 4.3 Triglycerides 116 Cholesterol 213.09 H LDL Cholesterol Direct 183 H VLDL Cholesterol 23.0 HDL Cholesterol 33 L Impressions: Foot X-Ray 08/11/18 11:23 IMPRESSION: 1. No fracture or dislocation of the left foot. Soft tissue swelling over the ball of the foot without radiopaque foreign body. No radiographic evidence of osteomyelitis. Please note that MRI is more sensitive for the evaluation of soft tissue infection and osteomyelitis. 2. Technical note: Examination is ordered and documented as radiographs the right foot, images are submitted with radiographic left markers. Lower Extremity MRI 08/11/18 14:49 IMPRESSION: Abnormal bone marrow signal in the plantar aspect of the 1st metatarsal head worrisome for osteomyelitis. 1st metatarsophalangeal joint effusion worrisome for septic arthritis. Soft tissue edema in the deep forefoot soft tissues surrounding the 1st metatarsophalangeal joint without soft tissue abscess. Assessment & Plan - Plan Summary Plan Summary: 38-year-old gentleman with a puncture wound on the left foot for 2 weeks. I agree with my partner that the clinical presentation is mild and I even believe the MRI does not show ostium of the bone but there is some reactive fluid and there is some pain in the MTP joint that may be worrisome for septic arthritis. I did discuss that it could be either septic arthritis versus reactive fluid fr om potential early infection and we would monitor him and evaluate him tomorrow. If his symptoms do not continue to improve after 48 hours of IV antibiotics I did discuss with him on Thursday to schedule a I&D of his first MTP joint of the left foot.
--- NOTE | 2018-08-12 19:28 | PDOC PROGRESS REPORT ---
Subjective Progress Note for:: 08/12/18 Subjective:: RENO ROD is a 38 year old male past medical history of hypertension not treated, opiate dependency due to chronic back pain. Patient is presenting to ED complaining of stepping on a nail with his right big toe about 2 weeks ago. Patient went to see his primary caregiver who started him on Augmentin and he was told if his pain and swelling does not get better to go to ED. Patient is complaining of persistent right great toe pain 10 out of 10, pulsating, decreased range of motion. Patient has been using crutches to ambulate. Patient was given tetanus shot by his PCP. Denying any other joint pain, swelling, fever, chills, nausea, vomiting, diarrhea, constipation or any urinary symptoms. Osteomyelitis was suspected in ED and an MRI of right foot was done which showed first metatarsal head worrisome for septic arthritis/osteomyelitis. 08/12/2018. No acute events overnight. Patient still complaining of persistent right toe pain patient is requiring high dose of narcotics possibly due to high tolerance for narcotics as patient has history of opiate dependency due to chronic back pain. On my encounter patient is comfortably sitting in his bed w as still complaining of persistent right toe pain. Patient is p.o. tolerant, having normal bowel and bladder function. Patient was counseled about his newly diagnosed diabetes and he received diabetic education. Patient is currently receiving IV antibiotics and pending or throw intervention possibly to Thursday. Has any fever, chills, nausea, vomiting, diarrhea, constipation, chest pain, shortness of breath or any urinary symptoms. Reason For Visit: OSTEOMYELITIS Physical Exam Vital Signs: Temp Pulse Resp BP Pulse Ox 97.5 F 85 16 126/66 H 95 08/12/18 16:06 08/12/18 16:06 08/12/18 11:23 08/12/18 16:06 08/12/18 16:06 Intake & Output 08/11/18 08/12/18 08/13/18 06:59 06:59 06:59 Intake Total 350 1150 Balance 350 1150 Weight 99.3 kg General appearance: PRESENT: no acute distress, well-developed, well-nourished Head exam: PRESENT: atraumatic, normocephalic Respiratory exam: PRESENT: clear to auscultation aubree. ABSENT: rales, rhonchi, wheezes Cardiovascular exam: PRESENT: RRR. ABSENT: diastolic murmur, rubs, systolic murmur Pulses: PRESENT: normal dorsalis pedis pul GI/Abdominal exam: PRESENT: normal bowel sounds, soft. ABSENT: distended, guarding, mass, organolmegaly, rebound, tenderness Musculoskeletal exam: PRESENT: full ROM, tenderness, other - Minimal erythema at the base of the right great toe. Tender to palpation and passive range of motion. Neurovascularly intact. Results Laboratory Results: 08/12/18 06:06 08/12/18 06:06 08/12/18 08/12/18 06:06 06:06 WBC 13.3 H RBC 4.83 Hgb 13.4 L Hct 40.6 MCV 84 MCH 27.9 MCHC 33.2 RDW 13.4 Plt Count 396 Sodium 136.2 L Potassium 4.6 Chloride 102 Carbon Dioxide 27 Anion Gap 7 BUN 16 Creatinine 0.81 Est GFR ( Amer) > 60 Est GFR (Non-Af Amer) > 60 Glucose 127 H Calcium 9.2 Impressions: Foot X-Ray 08/11/18 11:23 IMPRESSION: 1. No fracture or dislocation of the left foot. Soft tissue swelling over the ball of the foot without radiopaque foreign body. No radiographic evidence of osteomyelitis. Please note that MRI is more sensitive for the evaluation of soft tissue infection and osteomyelitis. 2. Technical note: Examination is ordered and documented as radiographs the right foot, images are submitted with radiographic left markers. Lower Extremity MRI 08/11/18 14:49 IMPRESSION: Abnormal bone marrow signal in the plantar aspect of the 1st metatarsal head worrisome for osteomyelitis. 1st metatarsophalangeal joint effusion worrisome for septic arthritis. Soft tissue edema in the deep forefoot soft tissues surrounding the 1st metatarsophalangeal joint without soft tissue abscess. Assessment & Plan - Diagnosis (1) Osteomyelitis Qualifiers: Osteomyelitis type: other acute Osteomyelitis location: foot Laterality: left Qualified Code(s): M86.172 - Other acute osteomyelitis, left ankle and foot Is this a current diagnosis for this admission?: Yes Plan: Right great toe MRI suspected of osteomyelitis. Minimal leukocytosis with no bandemia. CRP 13.0. Day 2 of IV antibiotics. Cultures negative. Ortho consulted for possible intervention. (2) Septic arthritis Qualifiers: Septic arthritis location: foot Septic arthritis organism: due to unspecified organism Laterality: left Qualified Code(s): M00.9 - Pyogenic arthritis, unspecified Is this a current diagnosis for this admission?: Yes Plan: As per problem #1. (3) Obesity Is this a current diagnosis for this admission?: Yes Plan: Diet and lifestyle modification. (4) HTN (hypertension) Is this a current diagnosis for this admission?: Yes Plan: Currently normotensive. Monitor vital status. (5) Diabetes Is this a current diagnosis for this admission?: Yes Plan: Newly diagnosed. Family history of diabetes. Hemoglobin A1c 7.3%. Continue Accu-Chek. Will start on metformin on discharge. Diabetic education r eceived. Outpatient PCP follow-up. Patient advised on lifestyle modification. (6) Hyperlipidemia Is this a current diagnosis for this admission?: Yes Plan: ASCVD score of 5.3 % will start on low-dose statins. Patient asked to follow-up with PCP for evaluation of liver function tests and also advised on lifestyle and diet modification.
[2018-08-12] MEDS: ATORVASTATIN CALCIUM 20 MG TABLET PO SCH (21:22)
[2018-08-12 22:06] LABS: VANCOMYCIN,TROUGH 19.2 ug/mL (5.0-20.0)
[2018-08-13] MEDS: MORPHINE SULFATE 10 MG/ML INJ IV PRN ×9 (00:13→22:58)
[2018-08-13] MEDS: PIPERACILLIN SODIUM/TAZOBACTAM 4.5 GM in NORMAL SALINE 100 ML IV SCH ×5 (00:15→23:05)
[2018-08-13] MEDS: VANCOMYCIN HCL 1,500 MG in DEXTROSE 5%-WATER 250 ML IV SCH ×3 (02:47→18:48)
[2018-08-13] MEDS: OXYCODONE-ACETAMINOPHEN 5-325 MG TABLET PO PRN ×3 (02:47→19:33)
[2018-08-13] MEDS: LANSOPRAZOLE 30 MG TAB.RAP.DR PO SCH (05:24)
[2018-08-13] MEDS: NICOTINE 21 MG/24 HR PATCH.TD24 TD SCH (09:41)
[2018-08-13] MEDS: ENOXAPARIN SODIUM INJ 40 MG/0.4 ML DISP.SYRIN SUBCUT SCH (10:59)
[2018-08-13 13:50] LABS: ABSOLUTE BASOPHILS # (AUTO) 0.1 10^3/uL (0.0-0.2); ABSOLUTE EOSINOPHILS # (AUTO) 0.2 10^3/uL (0.0-0.6); ABSOLUTE MONOCYTES (AUTO) 0.6 10^3/uL (0.1-1.4); ABSOLUTE NEUT (AUTO) 4.8 10^3/uL (1.7-8.2); EOSINOPHILS % (AUTO) 2.1 % (0-6); HEMOGLOBIN 12.7 g/dL (13.5-17.0); LYMPHOCYTES % (AUTO) 41.1 % (13-45); MEAN CORPUSCULAR HEMOGLOBIN 28.2 pg (27.0-33.4); MEAN CORPUSCULAR HGB CONC 33.4 g/dL (32.0-36.0); MEAN CORPUSCULAR VOLUME 84 fl (80-97); MONOCYTES % (AUTO) 6.5 % (3-13); PLATELET COUNT 390 10^3/uL (150-450); RED CELL DISTRIBUTION WIDTH 13.2 % (11.5-14.0); SEGMENTED NEUTROPHILS % (AUTO) 49.3 % (42-78); TOTAL CELLS COUNTED % (AUTO) 100 %; WHITE BLOOD COUNT 9.7 10^3/uL (4.0-10.5)
[2018-08-13 14:08] LABS: ANION GAP 7 (5-19); BLOOD UREA NITROGEN 16 mg/dL (7-20); CALCIUM 9.4 mg/dL (8.4-10.2); CARBON DIOXIDE 29 mmol/L (22-30); CHLORIDE 100 mmol/L (98-107); GLUCOSE 120 mg/dL (75-110); POTASSIUM 4.8 mmol/L (3.6-5.0); SODIUM 135.9 mmol/L (137-145)
--- NOTE | 2018-08-13 18:04 | PDOC PROGRESS REPORT ---
Subjective Reason For Visit: OSTEOMYELITIS Physical Exam Vital Signs: Temp Pulse Resp BP Pulse Ox 36.9 C 86 17 111/63 92 08/13/18 15:36 08/13/18 15:36 08/13/18 15:36 08/13/18 15:36 08/13/18 15:36 Intake & Output 08/12/18 08/13/18 08/14/18 06:59 06:59 06:59 Intake Total 350 2300 830 Balance 350 2300 830 Weight 99.3 kg 102.6 kg Results Laboratory Results: 08/13/18 13:33 08/13/18 13:33 08/13/18 08/13/18 13:33 13:33 WBC 9.7 RBC 4.50 Hgb 12.7 L Hct 38.0 MCV 84 MCH 28.2 MCHC 33.4 RDW 13.2 Plt Count 390 Seg Neutrophils % 49.3 Lymphocytes % 41.1 Monocytes % 6.5 Eosinophils % 2.1 Basophils % 1.0 Absolute Neutrophils 4.8 Absolute Lymphocytes 4.0 Absolute Monocytes 0.6 Absolute Eosinophils 0.2 Absolute Basophils 0.1 Sodium 135.9 L Potassium 4.8 Chloride 100 Carbon Dioxide 29 Anion Gap 7 BUN 16 Creatinine 1.01 Est GFR ( Amer) > 60 Est GFR (Non-Af Amer) > 60 Glucose 120 H Calcium 9.4 Impressions: Foot X-Ray 08/11/18 11:23 IMPRESSION: 1. No fracture or dislocation of the left foot. Soft tissue swelling over the ball of the foot without radiopaque foreign body. No radiographic evidence of osteomyelitis. Please note that MRI is more sensitive for the evaluation of soft tissue infection and osteomyelitis. 2. Technical note: Examination is ordered and documented as radiographs the right foot, images are submitted with radiographic left markers. Lower Extremity MRI 08/11/18 14:49 IMPRESSION: Abnormal bone marrow signal in the plantar aspect of the 1st metatarsal head worrisome for osteomyelitis. 1st metatarsophalangeal joint effusion worrisome for septic arthritis. Soft tissue edema in the deep forefoot soft tissues surrounding the 1st metatarsophalangeal joint without soft tissue abscess. Assessment & Plan - Diagnosis (1) Septic arthritis Qualifiers: Septic arthritis location: foot Septic arthritis organism: due to unspecified organism Laterality: left Qualified Code(s): M00.9 - Pyogenic arthritis, unspecified Is this a current diagnosis for this admission?: Yes Plan: 38-year-old diabetic with potential deep infection involving the first MTP joint. He does state that the pain is improved but still has some pain with motion and palpation. I do not believe patient has osteomyelitis. Patient progress is slow and I believe he would benefit from irrigation debridement of the first MTP joint on the left foot. I did discuss waiting until Thursday to do the procedure if necessary. We will place him n.p.o. and consented him and I reevaluate him tomorrow with plans to do the I&D tomorrow.
--- NOTE | 2018-08-13 18:58 | PDOC PROGRESS REPORT ---
Subjective Progress Note for:: 08/13/18 Subjective:: RENO ROD is a 38 year old male past medical history of hypertension not treated, opiate dependency due to chronic back pain. Patient is presenting to ED complaining of stepping on a nail with his right big toe about 2 weeks ago. Patient went to see his primary caregiver who started him on Augmentin and he was told if his pain and swelling does not get better to go to ED. Patient is complaining of persistent right great toe pain 10 out of 10, pulsating, decreased range of motion. Patient has been using crutches to ambulate. Patient was given tetanus shot by his PCP. Denying any other joint pain, swelling, fever, chills, nausea, vomiting, diarrhea, constipation or any urinary symptoms. Osteomyelitis was suspected in ED and an MRI of right foot was done which showed first metatarsal head worrisome for septic arthritis/osteomyelitis. 08/12/2018. No acute events overnight. Patient still complaining of persistent right toe pain patient is requiring high dose of narcotics possibly due to high tolerance for narcotics as patient has history of opiate dependency due to chronic back pain. On my encounter patient is comfortably sitting in his bed w as still complaining of persistent right toe pain. Patient is p.o. tolerant, having normal bowel and bladder function. Patient was counseled about his newly diagnosed diabetes and he received diabetic education. Patient is currently receiving IV antibiotics and pending or throw intervention possibly to Thursday. Has any fever, chills, nausea, vomiting, diarrhea, constipation, chest pain, shortness of breath or any urinary symptoms. 08/13/2018. No acute events overnight. Patient is still complaining of persistent right toe pain with mild improvement since admission. Patient's worst pain is on ambulation. Patient is still on IV antibiotics and his cultures have been negative. Plan is to do an I&D possibly tomorrow. Will be n.p.o. after midnight. Denies any fever, chills, nausea, vomiting, diarrhea or any constipation. Reason For Visit: OSTEOMYELITIS Physical Exam Vital Signs: Temp Pulse Resp BP Pulse Ox 98.4 F 86 17 111/63 92 08/13/18 15:36 08/13/18 15:36 08/13/18 15:36 08/13/18 15:36 08/13/18 15:36 Intake & Output 08/12/18 08/13/18 08/14/18 06:59 06:59 06:59 Intake Total 350 2300 930 Balance 350 2300 930 Weight 99.3 kg 102.6 kg General appearance: PRESENT: no acute distress, well-developed, well-nourished Respiratory exam: PRESENT: clear to auscultation aubree. ABSENT: rales, rhonchi, wheezes Cardiovascular exam: PRESENT: RRR. ABSENT: diastolic murmur, rubs, systolic murmur GI/Abdominal exam: PRESENT: normal bowel sounds, soft. ABSENT: distended, guarding, mass, organolmegaly, rebound, tenderness Musculoskeletal exam: PRESENT: tenderness - Mild erythema at the base of the right toe. Tenderness to palpation and passive and active range of motion. Neurovascularly intact. Results Laboratory Results: 08/13/18 13:33 08/13/18 13:33 08/13/18 08/13/18 13:33 13:33 WBC 9.7 RBC 4.50 Hgb 12.7 L Hct 38.0 MCV 84 MCH 28.2 MCHC 33.4 RDW 13.2 Plt Count 390 Seg Neutrophils % 49.3 Lymphocytes % 41.1 Monocytes % 6.5 Eosinophils % 2.1 Basophils % 1.0 Absolute Neutrophils 4.8 Absolute Lymphocytes 4.0 Absolute Monocytes 0.6 Absolute Eosinophils 0.2 Absolute Basophils 0.1 Sodium 135.9 L Potassium 4.8 Chloride 100 Carbon Dioxide 29 Anion Gap 7 BUN 16 Creatinine 1.01 Est GFR ( Amer) > 60 Est GFR (Non-Af Amer) > 60 Glucose 120 H Calcium 9.4 Impressions: Foot X-Ray 08/11/18 11:23 IMPRESSION: 1. No fracture or dislocation of the left foot. Soft tissue swelling over the ball of the foot without radiopaque foreign body. No radiographic evidence of osteomyelitis. Please note that MRI is more sensitive for the evaluation of soft tissue infection and osteomyelitis. 2. Technical note: Examination is ordered and documented as radiographs the right foot, images are submitted with radiographic left markers. Lower Extremity MRI 08/11/18 14:49 IMPRESSION: Abnormal bone marrow signal in the plantar aspect of the 1st metatarsal head worrisome for osteomyelitis. 1st metatarsophalangeal joint effusion worrisome for septic arthritis. Soft tissue edema in the deep forefoot soft tissues surrounding the 1st metatarsophalangeal joint without soft tissue abscess. Assessment & Plan - Diagnosis (1) Osteomyelitis Qualifiers: Osteomyelitis type: other acute Osteomyelitis location: foot Laterality: left Qualified Code(s): M86.172 - Other acute osteomyelitis, left ankle and foot Is this a current diagnosis for this admission?: Yes Plan: Right great toe MRI suspected of osteomyelitis. Minimal leukocytosis with no bandemia. CRP 13.0. Day 3 of IV antibiotics. Cultures negative. Scheduled for I&D tomorrow. N.p.o. after midnight. (2) Septic arthritis Qualifiers: Septic arthritis location: foot Septic arthritis organism: due to unspecified organism Laterality: left Qualified Code(s): M00.9 - Pyogenic arthritis, unspecified Is this a current diagnosis for this admission?: Yes Plan: As per problem #1. (3) Obesity Is this a current diagnosis for this admission?: Yes Plan: Diet and lifestyle modification. (4) HTN (hypertension) Is this a current diagnosis for this admission?: Yes Plan: Currently normotensive. Monitor vital status. (5) Diabetes Is this a current diagnosis for this admission?: Yes Plan: Newly diagnosed. Family history of diabetes. Hemoglobin A1c 7.3%. Continue Accu-Chek. Will start on metformin on discharge. Diabetic education received. Outpatient PCP follow-up. Patient advised on lifestyle modification. (6) Hyperlipidemia Is this a current diagnosis for this admission?: Yes Plan: ASCVD score of 5.3 % will start on low-dose statins. Patient asked to follow-up with PCP for evaluation of liver function tests and also advised on lifestyle and diet modification.
[2018-08-13] MEDS: OXYCODONE HCL IR 5 MG TABLET PO PRN (19:31)
[2018-08-13] MEDS: ATORVASTATIN CALCIUM 20 MG TABLET PO SCH (21:51)
[2018-08-14] MEDS ORDERED: RINGERS SOLUTION,LACTATED 1,000 ML IV PRN
[2018-08-14] MEDS: MORPHINE SULFATE 10 MG/ML INJ IV PRN ×10 (00:58→23:17)
[2018-08-14] MEDS: VANCOMYCIN HCL 1,500 MG in DEXTROSE 5%-WATER 250 ML IV SCH ×2 (00:59→09:18)
[2018-08-14 05:39] LABS: ABSOLUTE BASOPHILS # (AUTO) 0.1 10^3/uL (0.0-0.2); ABSOLUTE EOSINOPHILS # (AUTO) 0.2 10^3/uL (0.0-0.6); ABSOLUTE LYMPHOCYTES (AUTO) 4.4 10^3/uL (0.5-4.7); ABSOLUTE MONOCYTES (AUTO) 0.7 10^3/uL (0.1-1.4); ABSOLUTE NEUT (AUTO) 5.2 10^3/uL (1.7-8.2); BASOPHILS % (AUTO) 0.6 % (0-2); EOSINOPHILS % (AUTO) 1.8 % (0-6); HEMATOCRIT 38.9 % (37.9-51.0); LYMPHOCYTES % (AUTO) 41.8 % (13-45); MEAN CORPUSCULAR HEMOGLOBIN 28.1 pg (27.0-33.4); MEAN CORPUSCULAR HGB CONC 33.4 g/dL (32.0-36.0); MEAN CORPUSCULAR VOLUME 84 fl (80-97); MONOCYTES % (AUTO) 6.5 % (3-13); PLATELET COUNT 375 10^3/uL (150-450); RED BLOOD COUNT 4.62 10^6/uL (4.35-5.55); RED CELL DISTRIBUTION WIDTH 13.3 % (11.5-14.0); SEGMENTED NEUTROPHILS % (AUTO) 49.3 % (42-78); TOTAL CELLS COUNTED % (AUTO) 100 %; WHITE BLOOD COUNT 10.5 10^3/uL (4.0-10.5)
[2018-08-14] MEDS: PIPERACILLIN SODIUM/TAZOBACTAM 4.5 GM in NORMAL SALINE 100 ML IV SCH ×4 (05:46→23:24)
[2018-08-14] MEDS: LANSOPRAZOLE 30 MG TAB.RAP.DR PO SCH (05:47)
[2018-08-14 06:10] LABS: ALANINE AMINOTRANSFERASE 27 U/L (21-72); ALBUMIN 3.9 g/dL (3.5-5.0); ALKALINE PHOSPHATASE 97 U/L (38-126); ANION GAP 8 (5-19); ASPARTATE AMINO TRANSFERASE 18 U/L (17-59); BILIRUBIN,DIRECT 0.2 mg/dL (0.0-0.4); BILIRUBIN,TOTAL 0.4 mg/dL (0.2-1.3); BLOOD UREA NITROGEN 15 mg/dL (7-20); CALCIUM 9.3 mg/dL (8.4-10.2); CARBON DIOXIDE 28 mmol/L (22-30); CHLORIDE 104 mmol/L (98-107); GLUCOSE 120 mg/dL (75-110); SODIUM 139.6 mmol/L (137-145); TOTAL PROTEIN 6.4 g/dL (6.3-8.2)
[2018-08-14] MEDS ORDERED: FENTANYL CITRATE INJ/PF 100 MCG/2 ML AMPUL ONE (07:56)
[2018-08-14] MEDS ORDERED: PROPOFOL INJ 200 MG/20 ML VIAL IV ONE (07:57)
[2018-08-14] MEDS ORDERED: MIDAZOLAM 2 MG/2 ML INJ ONE (07:57)
[2018-08-14] MEDS: NICOTINE 21 MG/24 HR PATCH.TD24 TD SCH (09:20)
[2018-08-14] MEDS ORDERED: FENTANYL CITRATE INJ/PF 100 MCG/2 ML AMPUL IV PRN ×3 (09:46)
[2018-08-14] MEDS ORDERED: OXYCODONE-ACETAMINOPHEN 5-325 MG TABLET PO PRN ×2 (09:46)
[2018-08-14] MEDS ORDERED: MEPERIDINE HCL/PF INJ 25 MG/1 ML DISP.SYRIN IV PRN (09:46)
[2018-08-14] MEDS ORDERED: ONDANSETRON HCL INJ/PF 4 MG/2 ML SDV IV PRN (09:46)
[2018-08-14] MEDS ORDERED: DIPHENHYDRAMINE HCL 50 MG/ML VIAL IV PRN (09:46)
[2018-08-14] MEDS ORDERED: PROMETHAZINE HCL INJ 25 MG/1 ML VIAL IV PRN ×2 (09:46)
[2018-08-14] MEDS: ENOXAPARIN SODIUM INJ 40 MG/0.4 ML DISP.SYRIN SUBCUT SCH (09:52)
[2018-08-14] MEDS ORDERED: DEXAMETHASONE SOD PHOSPHATE INJ 4 MG/1 ML VIAL ONE (10:31)
[2018-08-14] MEDS ORDERED: METOCLOPRAMIDE HCL INJ/PF 10 MG/2 ML SDV ONE (10:31)
[2018-08-14] MEDS ORDERED: SUCCINYLCHOLINE CHLORIDE INJ 200 MG/10 ML VIAL ONE (10:31)
[2018-08-14] MEDS ORDERED: LIDOCAINE 2% INJ-PF (20 MG/ML) 2 ML AMPUL ONE (10:31)
[2018-08-14] MEDS ORDERED: ONDANSETRON HCL INJ/PF 4 MG/2 ML SDV ONE (10:31)
[2018-08-14 10:34] LABS: VANCOMYCIN,TROUGH 26.6 ug/mL (5.0-20.0)
[2018-08-14] MEDS ORDERED: BUPIVACAINE HCL 0.5 % INJ/PF 30 ML SDV ONE (11:49)
[2018-08-14] MEDS ORDERED: ACETAMINOPHEN 1,000 MG/100 ML RTUPB IV ONE (12:25)
[2018-08-14] MEDS: FENTANYL CITRATE INJ/PF 100 MCG/2 ML AMPUL ONE ×4 (12:27→12:42)
[2018-08-14] MEDS: OXYCODONE HCL IR 5 MG TABLET PO PRN (14:51)
[2018-08-14] MEDS: OXYCODONE-ACETAMINOPHEN 5-325 MG TABLET PO PRN (14:52)
--- NOTE | 2018-08-14 16:41 | PDOC PROGRESS REPORT ---
Subjective Progress Note for:: 08/14/18 Subjective:: RENO ROD is a 38 year old male past medical history of hypertension not treated, opiate dependency due to chronic back pain. Patient is presenting to ED complaining of stepping on a nail with his right big toe about 2 weeks ago. Patient went to see his primary caregiver who started him on Augmentin and he was told if his pain and swelling does not get better to go to ED. Patient is complaining of persistent right great toe pain 10 out of 10, pulsating, decreased range of motion. Patient has been using crutches to ambulate. Patient was given tetanus shot by his PCP. Denying any other joint pain, swelling, fever, chills, nausea, vomiting, diarrhea, constipation or any urinary symptoms. Osteomyelitis was suspected in ED and an MRI of right foot was done which showed first metatarsal head worrisome for septic arthritis/osteomyelitis. 08/12/2018. No acute events overnight. Patient still complaining of persistent right toe pain patient is requiring high dose of narcotics possibly due to high tolerance for narcotics as patient has history of opiate dependency due to chronic back pain. On my encounter patient is comfortably sitting in his bed w as still complaining of persistent right toe pain. Patient is p.o. tolerant, having normal bowel and bladder function. Patient was counseled about his newly diagnosed diabetes and he received diabetic education. Patient is currently receiving IV antibiotics and pending or throw intervention possibly to Thursday. Has any fever, chills, nausea, vomiting, diarrhea, constipation, chest pain, shortness of breath or any urinary symptoms. 08/13/2018. No acute events overnight. Patient is still complaining of persistent right toe pain with mild improvement since admission. Patient's worst pain is on ambulation. Patient is still on IV antibiotics and his cultures have been negative. Plan is to do an I&D possibly tomorrow. Will be n.p.o. after midnight. Denies any fever, chills, nausea, vomiting, diarrhea or any constipation. 08/14/2017. No acute events overnight. Patient having I&D today. Denies any fever chills nausea vomiting diarrhea or any constipation. Patient is still having persistent right toe pain. Reason For Visit: OSTEOMYELITIS Physical Exam Vital Signs: Temp Pulse Resp BP Pulse Ox 97.8 F 106 H 16 164/89 H 96 08/14/18 15:15 08/14/18 15:15 08/14/18 15:15 08/14/18 15:15 08/14/18 15:15 Intake & Output 08/13/18 08/14/18 08/15/18 06:59 06:59 06:59 Intake Total 2300 2368 1200 Output Total 5 Balance 2300 2368 1195 Weight 102.6 kg 101.2 kg General appearance: PRESENT: no acute distress, well-developed, well-nourished Head exam: PRESENT: atraumatic, normocephalic Respiratory exam: PRESENT: clear to auscultation aubree. ABSENT: rales, rhonchi, wheezes GI/Abdominal exam: PRESENT: normal bowel sounds, soft. ABSENT: distended, guar ding, mass, organolmegaly, rebound, tenderness Extremities exam: PRESENT: full ROM, joint swelling, other. ABSENT: calf tenderness, clubbing, pedal edema Neurological exam: PRESENT: alert, awake, oriented to person, oriented to place, oriented to time, oriented to situation, CN II-XII grossly intact. ABSENT: motor sensory deficit Results Laboratory Results: 08/14/18 05:09 08/14/18 09:38 08/14/18 08/14/18 08/14/18 05:09 05:09 09:38 WBC 10.5 RBC 4.62 Hgb 13.0 L Hct 38.9 MCV 84 MCH 28.1 MCHC 33.4 RDW 13.3 Plt Count 375 Seg Neutrophils % 49.3 Lymphocytes % 41.8 Monocytes % 6.5 Eosinophils % 1.8 Basophils % 0.6 Absolute Neutrophils 5.2 Absolute Lymphocytes 4.4 Absolute Monocytes 0.7 Absolute Eosinophils 0.2 Absolute Basophils 0.1 Sodium 139.6 Potassium 5.0 Chloride 104 Carbon Dioxide 28 Anion Gap 8 BUN 15 Creatinine 0.82 0.84 Est GFR ( Amer) > 60 > 60 Est GFR (Non-Af Amer) > 60 > 60 Glucose 120 H Calcium 9.3 Magnesium 2.2 Total Bilirubin 0.4 AST 18 ALT 27 Alkaline Phosphatase 97 Total Protein 6.4 Albumin 3.9 Impressions: Foot X-Ray 08/11/18 11:23 IMPRESSION: 1. No fracture or dislocation of the left foot. Soft tissue swelling over the ball of the foot without radiopaque foreign body. No radiographic evidence of osteomyelitis. Please note that MRI is more sensitive for the evaluation of soft tissue infection and osteomyelitis. 2. Technical note: Examination is ordered and documented as radiographs the right foot, images are submitted with radiographic left markers. Lower Extremity MRI 08/11/18 14:49 IMPRESSION: Abnormal bone marrow signal in the plantar aspect of the 1st metatarsal head worrisome for osteomyelitis. 1st metatarsophalangeal joint effusion worrisome for septic arthritis. Soft tissue edema in the deep forefoot soft tissues surrounding the 1st metatarsophalangeal joint without soft tissue abscess. Assessment & Plan - Diagnosis (1) Osteomyelitis Qualifiers: Osteomyelitis type: other acute Osteomyelitis location: foot Laterality: left Qualified Code(s): M86.172 - Other acute osteomyelitis, left ankle and foot Is this a current diagnosis for this admission?: Yes Plan: Right great toe MRI suspected of osteomyelitis. Minimal leukocytosis with no bandemia. CRP 13.0. Day 4 of IV antibiotics. Cultures negative. Scheduled for I&D today. (2) Septic arthritis Qualifiers: Septic arthritis location: foot Septic arthritis organism: due to unspecified organism Laterality: left Qualified Code(s): M00.9 - Pyogenic arthritis, unspecified Is this a current diagnosis for this admission?: Yes Plan: As per problem #1. (3) Obesity Is this a current diagnosis for this admission?: Yes Plan: Diet and lifestyle modification. (4) HTN (hypertension) Is this a current diagnosis for this admission?: Yes Plan: Will start on low-dose lisinopril and titrate up as tolerated. (5) Diabetes Is this a current diagnosis for this admission?: Yes Plan: Newly diagnosed. Family history of diabetes. Hemoglobin A1c 7.3%. Continue Accu-Chek. Will start on metformin on discharge. Diabetic education received. Outpatient PCP follow-up. Patient advised on lifestyle modification. (6) Hyperlipidemia Is this a current diagnosis for this admission?: Yes Plan: ASCVD score of 5.3 % will start on low-dose statins. Patient asked to follow-up with PCP for evaluation of liver function tests and also advised on lifestyle and diet modification.
[2018-08-14] MEDS ORDERED: LISINOPRIL 5 MG TABLET PO ONE (17:45)
[2018-08-14] MEDS: ATORVASTATIN CALCIUM 20 MG TABLET PO SCH (21:33)
[2018-08-14] MEDS: IBUPROFEN 800 MG TABLET PO PRN (21:39)
[2018-08-14] MEDS: INSULIN LISPRO 100 UNIT/ML 3 ML VIAL SUBCUT PRN (22:00)
[2018-08-15] MEDS: OXYCODONE HCL IR 5 MG TABLET PO PRN ×3 (00:31→21:02)
[2018-08-15] MEDS: OXYCODONE-ACETAMINOPHEN 5-325 MG TABLET PO PRN ×3 (00:32→21:01)
[2018-08-15] MEDS: MORPHINE SULFATE 10 MG/ML INJ IV PRN ×7 (02:45→22:35)
[2018-08-15] MEDS: PIPERACILLIN SODIUM/TAZOBACTAM 4.5 GM in NORMAL SALINE 100 ML IV SCH ×3 (05:18→17:29)
[2018-08-15] MEDS: LANSOPRAZOLE 30 MG TAB.RAP.DR PO SCH (05:25)
[2018-08-15 05:43] LABS: ABSOLUTE BASOPHILS # (AUTO) 0.1 10^3/uL (0.0-0.2); ABSOLUTE LYMPHOCYTES (AUTO) 2.7 10^3/uL (0.5-4.7); ABSOLUTE MONOCYTES (AUTO) 1.2 10^3/uL (0.1-1.4); ABSOLUTE NEUT (AUTO) 12.8 10^3/uL (1.7-8.2); BASOPHILS % (AUTO) 0.6 % (0-2); EOSINOPHILS % (AUTO) 0.1 % (0-6); HEMATOCRIT 36.2 % (37.9-51.0); HEMOGLOBIN 12.1 g/dL (13.5-17.0); LYMPHOCYTES % (AUTO) 16.1 % (13-45); MEAN CORPUSCULAR HGB CONC 33.5 g/dL (32.0-36.0); MEAN CORPUSCULAR VOLUME 84 fl (80-97); MONOCYTES % (AUTO) 7.2 % (3-13); PLATELET COUNT 380 10^3/uL (150-450); RED BLOOD COUNT 4.33 10^6/uL (4.35-5.55); RED CELL DISTRIBUTION WIDTH 13.2 % (11.5-14.0); TOTAL CELLS COUNTED % (AUTO) 100 %; WHITE BLOOD COUNT 16.8 10^3/uL (4.0-10.5)
[2018-08-15 06:29] LABS: ALANINE AMINOTRANSFERASE 27 U/L (21-72); ALBUMIN 3.7 g/dL (3.5-5.0); ALKALINE PHOSPHATASE 87 U/L (38-126); ANION GAP 7 (5-19); ASPARTATE AMINO TRANSFERASE 19 U/L (17-59); BILIRUBIN,DIRECT 0.2 mg/dL (0.0-0.4); BILIRUBIN,TOTAL 0.3 mg/dL (0.2-1.3); BLOOD UREA NITROGEN 18 mg/dL (7-20); CALCIUM 9.5 mg/dL (8.4-10.2); CARBON DIOXIDE 29 mmol/L (22-30); CHLORIDE 102 mmol/L (98-107); GLUCOSE 122 mg/dL (75-110); POTASSIUM 4.9 mmol/L (3.6-5.0); SODIUM 138.2 mmol/L (137-145); TOTAL PROTEIN 6.3 g/dL (6.3-8.2)
[2018-08-15] MEDS: NICOTINE 21 MG/24 HR PATCH.TD24 TD SCH (09:28)
[2018-08-15] MEDS: ENOXAPARIN SODIUM INJ 40 MG/0.4 ML DISP.SYRIN SUBCUT SCH (09:28)
[2018-08-15] MEDS ORDERED: VANCOMYCIN HCL 1,500 MG in DEXTROSE 5%-WATER 250 ML IV SCH (10:00)
[2018-08-15] MEDS ORDERED: LISINOPRIL 5 MG TABLET PO SCH (10:00)
[2018-08-15] MEDS: LISINOPRIL 5 MG TABLET PO SCH (10:01)
[2018-08-15] MEDS: INSULIN LISPRO 100 UNIT/ML 3 ML VIAL SUBCUT PRN (14:18)
--- NOTE | 2018-08-15 14:26 | Operative Report ---
Operative Report DATE OF SURGERY: 08/14/18 PREOPERATIVE DIAGNOSIS: Septic arthritis of the left first MTP joint POSTOPERATIVE DIAGNOSIS: Nonspecific swelling with no evidence of septic arthritis OPERATION: Incision, drainage and irrigation of left first MTP joint SURGEON: SEBASTIEN CORNEJO ANESTHESIA: GA TISSUE REMOVED OR ALTERED: None COMPLICATIONS: None ESTIMATED BLOOD LOSS: 20 mL INTRAOPERATIVE FINDINGS: As above there was no pus or significant colored fluid. Just nonspecific reactive fluid with intact articular cartilage PROCEDURE: Patient was brought to the operating room after receiving antibiotics. Patient was given general anesthetic and the thigh tourniquet was applied to the left calf. Left foot was prepped and draped in a normal sterile surgical fashion timeout was done identifying the left foot as the correct first MTP joint as the first place. Esmarch was used to exsanguinate the extremity and tourniquet was inflated at 280 mmHg. A longitudinal incision over the first MCP joint was done on the medial aspect. Retractors were placed and the dissection was done with them scissors. Was able to reflect the digital nerve in the neck split the capsule and exposed the first MTP joint. There is just reactive synovial fluid but there was no pus or colored fluid. Bulb irrigation of 1 L of sterile same solution was done and then the capsule was. We closed with 2-0 Vicryl. Subtenons fat was closed with 2-0 Vicryl and then 3-0 nylon for skin. Xeroform 4 x 4 dressing was applied and overwrapped with a Kerlix and then co-band. Patient then was let the tourniquet down and drapes were removed and the patient extubated and was taken to PACU in stable condition
--- NOTE | 2018-08-15 14:33 | PDOC PROGRESS REPORT ---
Subjective Progress Note for:: 08/15/18 Subjective:: Patient complaining of some surgical pain but no other issues. Reason For Visit: OSTEOMYELITIS Physical Exam Vital Signs: Temp Pulse Resp BP Pulse Ox 36.7 C 91 16 137/85 H 96 08/15/18 11:16 08/15/18 11:16 08/15/18 11:16 08/15/18 11:16 08/15/18 11:16 Intake & Output 08/14/18 08/15/18 08/16/18 06:59 06:59 06:59 Intake Total 2368 2694 Output Total 605 Balance 2368 2089 Weight 101.2 kg 101.9 kg Adult Front & Back Image: 1 - Dressing is dry clean and intact. Patient has good sensation to light touch. No erythema in the toe. Able to move the toe with some soreness and pain. Results Laboratory Results: 08/15/18 04:51 08/15/18 04:51 08/15/18 08/15/18 04:51 04:51 WBC 16.8 H RBC 4.33 L Hgb 12.1 L Hct 36.2 L MCV 84 MCH 28.0 MCHC 33.5 RDW 13.2 Plt Count 380 Seg Neutrophils % 76.0 Lymphocytes % 16.1 Monocytes % 7.2 Eosinophils % 0.1 Basophils % 0.6 Absolute Neutrophils 12.8 H Absolute Lymphocytes 2.7 Absolute Monocytes 1.2 Absolute Eosinophils 0.0 Absolute Basophils 0.1 Sodium 138.2 Potassium 4.9 Chloride 102 Carbon Dioxide 29 Anion Gap 7 BUN 18 Creatinine 1.13 Est GFR ( Amer) > 60 Est GFR (Non-Af Amer) > 60 Glucose 122 H Calcium 9.5 Total Bilirubin 0.3 AST 19 ALT 27 Alkaline Phosphatase 87 Total Protein 6.3 Albumin 3.7 Impressions: Foot X-Ray 08/11/18 11:23 IMPRESSION: 1. No fracture or dislocation of the left foot. Soft tissue swelling over the ball of the foot without radiopaque foreign body. No radiographic evidence of osteomyelitis. Please note that MRI is more sensitive for the evaluation of soft tissue infection and osteomyelitis. 2. Technical note: Examination is ordered and documented as radiographs the right foot, images are submitted with radiographic left markers. Lower Extremity MRI 08/11/18 14:49 IMPRESSION: Abnormal bone marrow signal in the plantar aspect of the 1st metatarsal head worrisome for osteomyelitis. 1st metatarsophalangeal joint effusion worrisome for septic arthritis. Soft tissue edema in the deep forefoot soft tissues surrounding the 1st metatarsophalangeal joint without soft tissue abscess. Assessment & Plan - Diagnosis (1) Septic arthritis Qualifiers: Septic arthritis location: foot Septic arthritis organism: due to unspecified organism Laterality: left Qualified Code(s): M00.9 - Pyogenic arthritis, unspecified Is this a current diagnosis for this admission?: Yes - Plan Summary Plan Summary: 38-year-old gentleman postop day 1 from I&D of the left first MTP joint. Patient did not have septic arthritis or osteomyelitis. The articular cartilage and bone looked pristine with just some reactive fluid. I do believe he may had a localized infection from the puncture wound therefore I do believe to continue the antibiotics. But I do believe patient could be discharged in a day or 2 on p.o. antibiotics.
--- NOTE | 2018-08-15 15:45 | PDOC PROGRESS REPORT ---
Subjective Progress Note for:: 08/15/18 Subjective:: RENO ROD is a 38 year old male past medical history of hypertension not treated, opiate dependency due to chronic back pain. Patient is presenting to ED complaining of stepping on a nail with his right big toe about 2 weeks ago. Patient went to see his primary caregiver who started him on Augmentin and he was told if his pain and swelling does not get better to go to ED. Patient is complaining of persistent right great toe pain 10 out of 10, pulsating, decreased range of motion. Patient has been using crutches to ambulate. Patient was given tetanus shot by his PCP. Denying any other joint pain, swelling, fever, chills, nausea, vomiting, diarrhea, constipation or any urinary symptoms. Osteomyelitis was suspected in ED and an MRI of right foot was done which showed first metatarsal head worrisome for septic arthritis/osteomyelitis. 08/12/2018. No acute events overnight. Patient still complaining of persistent right toe pain patient is requiring high dose of narcotics possibly due to high tolerance for narcotics as patient has history of opiate dependency due to chronic back pain. On my encounter patient is comfortably sitting in his bed w as still complaining of persistent right toe pain. Patient is p.o. tolerant, having normal bowel and bladder function. Patient was counseled about his newly diagnosed diabetes and he received diabetic education. Patient is currently receiving IV antibiotics and pending or throw intervention possibly to Thursday. Has any fever, chills, nausea, vomiting, diarrhea, constipation, chest pain, shortness of breath or any urinary symptoms. 08/13/2018. No acute events overnight. Patient is still complaining of persistent right toe pain with mild improvement since admission. Patient's worst pain is on ambulation. Patient is still on IV antibiotics and his cultures have been negative. Plan is to do an I&D possibly tomorrow. Will be n.p.o. after midnight. Denies any fever, chills, nausea, vomiting, diarrhea or any constipation. 08/14/2018. No acute events overnight. Patient having I&D today. Denies any fever chills nausea vomiting diarrhea or any constipation. Patient is still having persistent right toe pain. 08/15/2018. Day 1 status post I&D left first MTP. Patient has improvement of his left foot pain. Denies any fever, chills, chest pain, shortness of breath, nausea, vomiting. Reason For Visit: OSTEOMYELITIS Physical Exam Vital Signs: Temp Pulse Resp BP Pulse Ox 98.1 F 91 16 137/85 H 96 08/15/18 11:16 08/15/18 11:16 08/15/18 11:16 08/15/18 11:16 08/15/18 11:16 Intake & Output 08/14/18 08/15/18 08/16/18 06:59 06:59 06:59 Intake Total 2368 2694 Output Total 605 Balance 2368 2089 Weight 101.2 kg 101.9 kg General appearance: PRESENT: no acute distress, well-developed, well-nourished Head exam: PRESENT: atraumatic, normocephalic Respiratory exam: PRESENT: clear to auscultation aubree. ABSENT: rales, rhonchi, wheezes Cardiovascular exam: PRESENT: RRR. ABSENT: diastolic murmur, rubs, systolic murmur GI/Abdominal exam: PRESENT: normal bowel sounds, soft. ABSENT: distended, guarding, mass, organolmegaly, rebound, tenderness Musculoskeletal exam: PRESENT: tenderness - Left first MTP is status post I&D. Neurovascularly intact. Results Laboratory Results: 08/15/18 04:51 08/15/18 04:51 08/15/18 08/15/18 04:51 04:51 WBC 16.8 H RBC 4.33 L Hgb 12.1 L Hct 36.2 L MCV 84 MCH 28.0 MCHC 33.5 RDW 13.2 Plt Count 380 Seg Neutrophils % 76.0 Lymphocytes % 16.1 Monocytes % 7.2 Eosinophils % 0.1 Basophils % 0.6 Absolute Neutrophils 12.8 H Absolute Lymphocytes 2.7 Absolute Monocytes 1.2 Absolute Eosinophils 0.0 Absolute Basophils 0.1 Sodium 138.2 Potassium 4.9 Chloride 102 Carbon Dioxide 29 Anion Gap 7 BUN 18 Creatinine 1.13 Est GFR ( Amer) > 60 Est GFR (Non-Af Amer) > 60 Glucose 122 H Calcium 9.5 Total Bilirubin 0.3 AST 19 ALT 27 Alkaline Phosphatase 87 Total Protein 6.3 Albumin 3.7 Impressions: Foot X-Ray 08/11/18 11:23 IMPRESSION: 1. No fracture or dislocation of the left foot. Soft tissue swelling over the ball of the foot without radiopaque foreign body. No radiographic evidence of osteomyelitis. Please note that MRI is more sensitive for the evaluation of soft tissue infection and osteomyelitis. 2. Technical note: Examination is ordered and documented as radiographs the right foot, images are submitted with radiographic left markers. Lower Extremity MRI 08/11/18 14:49 IMPRESSION: Abnormal bone marrow signal in the plantar aspect of the 1st metatarsal head worrisome for osteomyelitis. 1st metatarsophalangeal joint effusion worrisome for septic arthritis. Soft tissue edema in the deep forefoot soft tissues surrounding the 1st metatarsophalangeal joint without soft tissue abscess. Assessment & Plan - Diagnosis (1) Osteomyelitis Qualifiers: Osteomyelitis type: other acute Osteomyelitis location: foot Laterality: left Qualified Code(s): M86.172 - Other acute osteomyelitis, left ankle and foot Is this a current diagnosis for this admission?: Yes Plan: Day 1 post I&D of the left first MTP joint. As per surgical note patient did not have septic arthritis or osteomyelitis. The articular cartilage and bone looked pristine with just some reactive fluid. Possibly a localized infection from the puncture wound. Joint sample growing 2/2 gram-negative rods. Pending sensitivity. Day 5 of IV antibiotics. Switch to p.o. once sensitivity available. On admission right great toe MRI suspected of osteomyelitis. CRP 13.0. (2) Septic arthritis Qualifiers: Septic arthritis location: foot Septic arthritis organism: due to unspecified organism Laterality: left Qualified Code(s): M00.9 - Pyogenic arthritis, unspecified Is this a current diagnosis for this admission?: Yes Plan: As per problem #1. (3) Obesity Is this a current diagnosis for this admission?: Yes Plan: Diet and lifestyle modification. (4) HTN (hypertension) Is this a current diagnosis for this admission?: Yes Plan: Euvolemic, normotensive. Continue lisinopril (5) Diabetes Is this a current diagnosis for this admission?: Yes Plan: Newly diagnosed. Family history of diabetes. Hemoglobin A1c 7.3%. Continue Accu-Chek. Continue sliding scale insulin. Will start on metformin on discharge. Diabetic education received. Outpatient PCP follow-up. Patient advised on lifestyle modification. (6) Hyperlipidemia Is this a current diagnosis for this admission?: Yes Plan: ASCVD score of 5.3 % will start on low-dose statins. Patient asked to follow-up with PCP for evaluation of liver function tests and also advised on lifestyle and diet modification.
[2018-08-15] MEDS: IBUPROFEN 800 MG TABLET PO PRN (17:29)
[2018-08-15] MEDS: ATORVASTATIN CALCIUM 20 MG TABLET PO SCH (21:02)
[2018-08-16] MEDS: PIPERACILLIN SODIUM/TAZOBACTAM 4.5 GM in NORMAL SALINE 100 ML IV SCH ×4 (00:02→18:21)
[2018-08-16] MEDS: MORPHINE SULFATE 10 MG/ML INJ IV PRN ×6 (00:58→12:56)
[2018-08-16] MEDS: LANSOPRAZOLE 30 MG TAB.RAP.DR PO SCH (05:08)
[2018-08-16 06:03] LABS: ABSOLUTE BASOPHILS # (AUTO) 0.1 10^3/uL (0.0-0.2); ABSOLUTE EOSINOPHILS # (AUTO) 0.1 10^3/uL (0.0-0.6); ABSOLUTE LYMPHOCYTES (AUTO) 5.2 10^3/uL (0.5-4.7); ABSOLUTE MONOCYTES (AUTO) 0.8 10^3/uL (0.1-1.4); ABSOLUTE NEUT (AUTO) 6.6 10^3/uL (1.7-8.2); BASOPHILS % (AUTO) 0.7 % (0-2); EOSINOPHILS % (AUTO) 1.1 % (0-6); HEMATOCRIT 36.4 % (37.9-51.0); HEMOGLOBIN 12.1 g/dL (13.5-17.0); LYMPHOCYTES % (AUTO) 40.3 % (13-45); MEAN CORPUSCULAR HEMOGLOBIN 28.1 pg (27.0-33.4); MEAN CORPUSCULAR HGB CONC 33.2 g/dL (32.0-36.0); MEAN CORPUSCULAR VOLUME 85 fl (80-97); MONOCYTES % (AUTO) 6.4 % (3-13); PLATELET COUNT 382 10^3/uL (150-450); RED BLOOD COUNT 4.31 10^6/uL (4.35-5.55); RED CELL DISTRIBUTION WIDTH 13.3 % (11.5-14.0); SEGMENTED NEUTROPHILS % (AUTO) 51.5 % (42-78); TOTAL CELLS COUNTED % (AUTO) 100 %; WHITE BLOOD COUNT 12.9 10^3/uL (4.0-10.5)
[2018-08-16 06:21] LABS: ALANINE AMINOTRANSFERASE 26 U/L (21-72); ALBUMIN 3.6 g/dL (3.5-5.0); ALKALINE PHOSPHATASE 79 U/L (38-126); ANION GAP 7 (5-19); ASPARTATE AMINO TRANSFERASE 15 U/L (17-59); BILIRUBIN,DIRECT 0.2 mg/dL (0.0-0.4); BILIRUBIN,TOTAL 0.3 mg/dL (0.2-1.3); BLOOD UREA NITROGEN 15 mg/dL (7-20); CALCIUM 9.5 mg/dL (8.4-10.2); CARBON DIOXIDE 29 mmol/L (22-30); CHLORIDE 104 mmol/L (98-107); GLUCOSE 112 mg/dL (75-110); POTASSIUM 4.7 mmol/L (3.6-5.0); SODIUM 140.4 mmol/L (137-145); TOTAL PROTEIN 6.1 g/dL (6.3-8.2)
[2018-08-16] MEDS: ENOXAPARIN SODIUM INJ 40 MG/0.4 ML DISP.SYRIN SUBCUT SCH (09:19)
[2018-08-16] MEDS: OXYCODONE-ACETAMINOPHEN 5-325 MG TABLET PO PRN ×2 (09:20→16:58)
[2018-08-16] MEDS: LISINOPRIL 5 MG TABLET PO SCH (09:20)
[2018-08-16] MEDS: OXYCODONE HCL IR 5 MG TABLET PO PRN ×2 (09:21→16:59)
[2018-08-16] MEDS: NICOTINE 21 MG/24 HR PATCH.TD24 TD SCH (09:22)
[2018-08-16] MEDS ORDERED: LISINOPRIL 5 MG TABLET PO ONE (11:00)
[2018-08-16] MEDS: IBUPROFEN 800 MG TABLET PO PRN (11:53)
[2018-08-16] MEDS: INSULIN LISPRO 100 UNIT/ML 3 ML VIAL SUBCUT PRN (11:55)
--- NOTE | 2018-08-16 15:32 | Progress Note ---
Provider Note Provider Note: ID Consult Note Asked by Dr Masterson to review patient's chart. Pt not seen or examined. Mr. Thompson is a 38 year old man with PMH including HTN and obesity who stepped on a nail two weeks ago and developed pain, swelling and erythema to his left great toe that caused him to present on 08/11/18. Exam was notable for brisk capillary refill, puncture wound to plantar surface of foot in the region of the tarsometatarsal without drainage but some pain on passive ROM and tenderness to palpation. Plain films did not show fx, dislocation or radiopaque foreign body. MRI of the foot showed 1st metatarsophalangeal joint effusion worrisome for septic arthritis and abnormal bone marrow signal in the plantar aspect of the fi rst metatarsal head worrisome for osteomyelitis. Pt was taken to the OR on 08/14/18 where reactive synovial fluid but no corbin pus was encountered. However, cultures obtainined in the OR grew Pseudomonas aeruginosa. Although no corbin pus was encountered, the fact that the articular fluid grew Pseudomonas aeruginosa by definition indicates septic arthritis. Zosyn can be discontinued, and the patient treated with PO Cipro 750 mg BID for the remainder of 4 weeks (projected end date 09/11/18). The patient should be counseled on the need to avoid co-administration of multivalent cations (including but not limited to Tums, calcium supplements, multivitamin, iron supplements, Maalox, Mylanta) with Cipro so that the antibiotic is not chelated. Dean Hutchinson MD [facility] Infectious Diseases pager [phone]
--- NOTE | 2018-08-16 18:03 | PDOC PROGRESS REPORT ---
Subjective Progress Note for:: 08/16/18 Subjective:: Patient states the pain is getting better. No issues overnight. Ready to go home. Reason For Visit: OSTEOMYELITIS Physical Exam Vital Signs: Temp Pulse Resp BP Pulse Ox 36.8 C 76 18 104/62 95 08/16/18 15:14 08/16/18 15:14 08/16/18 15:14 08/16/18 15:14 08/16/18 15:14 Intake & Output 08/15/18 08/16/18 08/17/18 06:59 06:59 06:59 Intake Total 2694 2314 100 Output Total 605 Balance 2089 2314 100 Weight 101.9 kg 102.1 kg General appearance: PRESENT: no acute distress Adult Front & Back Image: 1 - Dressing dry clean and intact. Good sensation to light touch. Results Laboratory Results: 08/16/18 04:54 08/16/18 04:54 08/16/18 08/16/18 04:54 04:54 WBC 12.9 H RBC 4.31 L Hgb 12.1 L Hct 36.4 L MCV 85 MCH 28.1 MCHC 33.2 RDW 13.3 Plt Count 382 Seg Neutrophils % 51.5 Lymphocytes % 40.3 Monocytes % 6.4 Eosinophils % 1.1 Basophils % 0.7 Absolute Neutrophils 6.6 Absolute Lymphocytes 5.2 H Absolute Monocytes 0.8 Absolute Eosinophils 0.1 Absolute Basophils 0.1 Sodium 140.4 Potassium 4.7 Chloride 104 Carbon Dioxide 29 Anion Gap 7 BUN 15 Creatinine 1.23 Est GFR ( Amer) > 60 Est GFR (Non-Af Amer) > 60 Glucose 112 H Calcium 9.5 Total Bilirubin 0.3 AST 15 L ALT 26 Alkaline Phosphatase 79 Total Protein 6.1 L Albumin 3.6 Impressions: Foot X-Ray 08/11/18 11:23 IMPRESSION: 1. No fracture or dislocation of the left foot. Soft tissue swelling over the ball of the foot without radiopaque foreign body. No radiographic evidence of osteomyelitis. Please note that MRI is more sensitive for the evaluation of soft tissue infection and osteomyelitis. 2. Technical note: Examination is ordered and documented as radiographs the right foot, images are submitted with radiographic left markers. Lower Extremity MRI 08/11/18 14:49 IMPRESSION: Abnormal bone marrow signal in the plantar aspect of the 1st metatarsal head worrisome for osteomyelitis. 1st metatarsophalangeal joint effusion worrisome for septic arthritis. Soft tissue edema in the deep forefoot soft tissues surrounding the 1st metatarsophalangeal joint without soft tissue abscess. Assessment & Plan - Diagnosis (1) Septic arthritis Qualifiers: Septic arthritis location: foot Septic arthritis organism: due to unspecified organism Laterality: left Qualified Code(s): M00.9 - Pyogenic arthritis, unspecified Is this a current diagnosis for this admission?: Yes - Plan Summary Plan Summary: Patient status post I&D of the left first MTP joint. Cultures have grown Pseudomonas consistent with infection from the puncture wound. Antibiotics are being treated. Patient can be transitioned to p.o. antibiotics and then will follow up in the office. Continue dressing changes daily.
[2018-08-16 19:55] VITALS: BP 138/80
[2018-08-17] MEDS ORDERED: LISINOPRIL 10 MG TABLET PO SCH (10:00)
[2018-08-17] MEDS ORDERED: LISINOPRIL 5 MG TABLET PO SCH (10:00)
--- NOTE | 2018-08-20 06:56 | PDOC DISCHARGE SUMMARY ---
General - Admit/Disc Date/PCP Admission Date/Primary Care Provider: 08/12/18 11:34 MIKE RAMIREZ, Discharge Date: 08/16/18 - Discharge Diagnosis (1) Osteomyelitis Is this a current diagnosis for this admission?: Yes (2) Septic arthritis Is this a current diagnosis for this admission?: Yes (3) Obesity Is this a current diagnosis for this admission?: Yes (4) HTN (hypertension) Is this a current diagnosis for this admission?: Yes (5) Diabetes Is this a current diagnosis for this admission?: Yes (6) Hyperlipidemia Is this a current diagnosis for this admission?: Yes - Additional Information Resuscitation Status: Full Code Discharge Diet: As Tolerated Discharge Activity: Activity As Tolerated Prescriptions: Ciprofloxacin 750 mg PO BID 28 Days #56 ml Lisinopril [Prinivil 10 mg Tablet] 10 mg PO DAILY 30 Days #30 tablet Metformin HCl 500 mg PO BID 60 Days #30 tablet Tramadol HCl [Ultram 50 mg Tablet] 50 mg PO Q6HP PRN 1 Days #30 tab PRN Reason: Home Medications: Dextroamphetamine/Amphetamine [Adderall 30 mg Tablet] 30 mg PO BID 08/11/18 Oxycodone HCl/Acetaminophen [Percocet 10-325 mg Tablet] 1 each PO Q6HP PRN 08/11/18 Ciprofloxacin 750 mg PO BID 28 Days #56 ml 08/16/18 Lisinopril [Prinivil 10 mg Tablet] 10 mg PO DAILY 30 Days #30 tablet 08/16/18 Metformin HCl 500 mg PO BID 60 Days #30 tablet 08/16/18 Tramadol HCl [Ultram 50 mg Tablet] 50 mg PO Q6HP PRN 1 Days #30 tab 08/16/18 History of Present Illness History of Present Illness: RENO ROD is a 38 year old male past medical history of hypertension not treated. Patient is presenting to ED complaining of stepping on a nail with his right big toe about 2 weeks ago. Patient went to see his primary caregiver who started him on Augmentin and he was told if his pain and swelling does not get better to go to ED. Patient is complaining of persistent right great toe pain 10 out of 10, pulsating, decreased range of motion. Patient has been using crutches to ambulate. Patient was given tetanus shot by his PCP. Denying any other joint pain, swelling, fever, chills, nausea, vomiting, diarrhea, constipation or any urinary symptoms. Osteomyelitis was suspected in ED and an MRI of right foot was done which showed first metatarsal head worrisome for septic arthritis/osteomyelitis. Hospital Course Hospital Course: (1) Osteomyelitis On admission right great toe MRI suspected of osteomyelitis. CRP 13.0. Patient had I&D of left first MTP joint by orthopedic surgery. As per surgical note patient did not have septic arthritis or osteomyelitis. The articular cartilage and bone looked pristine with just some reactive fluid. Possibly a localized infection from the puncture wound. Joint sample growing 2/2 pseudomonas aeruginosa pansensitive. Received 5 of IV antibiotics switched to p.o ciprofloxacin 750 twice daily liter total of 4 weeks. Infectious disease was consulted and recommendations noted. Please refer to infectious disease note. Outpatient wound care was arranged follow-up with Dr. Maldonado orthopedic surgeon. (2) Septic arthritis As per problem #1. (3) Obesity Diet and lifestyle modification. (4) HTN (hypertension) Euvolemic, normotensive. Started on lisinopril and appointment made for him to see his PCP Follow-up with PCP Dr. Mike Ramirez (5) Diabetes Newly diagnosed. Family history of diabetes. Hemoglobin A1c 7.3%. Continue Accu-Chek. Continue sliding scale insulin. Will start on metformin on discharge. Diabetic education received. Outpatient PCP follow-up. Patient advised on lifestyle modification. Follow-up with PCP Dr. Mike Ramirez (6) Hyperlipidemia ASCVD score of 5.3 % will start on low-dose statins. Patient asked to follow-up with PCP for evaluation of liver function tests and also advised on lifestyle and diet modification. Physical Exam Vital Signs: Temp Pulse Resp BP Pulse Ox 98.3 F 76 18 138/80 H 95 08/16/18 19:53 08/16/18 19:53 08/16/18 19:53 08/16/18 19:53 08/16/18 19:53 General appearance: PRESENT: no acute distress, well-developed, well-nourished Head exam: PRESENT: atraumatic, normocephalic Eye exam: PRESENT: conjunctiva pink, EOMI, PERRLA. ABSENT: scleral icterus Ear exam: PRESENT: normal external ear exam Mouth exam: PRESENT: moist, tongue midline Neck exam: ABSENT: carotid bruit, JVD, lymphadenopathy, thyromegaly Respiratory exam: PRESENT: clear to auscultation aubree. ABSENT: rales, rhonchi, wheezes Cardiovascular exam: PRESENT: RRR. ABSENT: diastolic murmur, rubs, systolic murmur Pulses: PRESENT: normal dorsalis pedis pul Vascular exam: PRESENT: normal capillary refill GI/Abdominal exam: PRESENT: normal bowel sounds, soft. ABSENT: distended, guarding, mass, organolmegaly, rebound, tenderness Rectal exam: PRESENT: deferred Extremities exam: PRESENT: full ROM. ABSENT: calf tenderness, clubbing, pedal edema Neurological exam: PRESENT: alert, awake, oriented to person, oriented to place, oriented to time, oriented to situation, CN II-XII grossly intact. ABSENT: motor sensory deficit Psychiatric exam: PRESENT: appropriate affect, normal mood. ABSENT: homicidal ideation, suicidal ideation Skin exam: PRESENT: dry, intact, warm. ABSENT: cyanosis, rash Results Laboratory Results: 08/16/18 04:54 08/16/18 04:54 Impressions: Foot X-Ray 08/11/18 11:23 IMPRESSION: 1. No fracture or dislocation of the left foot. Soft tissue swelling over the ball of the foot without radiopaque foreign body. No radiographic evidence of osteomyelitis. Please note that MRI is more sensitive for the evaluation of soft tissue infection and osteomyelitis. 2. Technical note: Examination is ordered and documented as radiographs the right foot, images are submitted with radiographic left markers. Lower Extremity MRI 08/11/18 14:49 IMPRESSION: Abnormal bone marrow signal in the plantar aspect of the 1st metatarsal head worrisome for osteomyelitis. 1st metatarsophalangeal joint effusion worrisome for septic arthritis. Soft tissue edema in the deep forefoot soft tissues surrounding the 1st metatarsophalangeal joint without soft tissue abscess. Qualifiers - * PATIENT BEING DISCHARGED WITH ANY OF THE FOLLOWING DIAGNOSIS: No VTE patient discharged on overlapping Therapy?: Yes
== END 2018-08-16 20:12 | disposition home or self-care (01) | DRG 504 ==
LOC: ER 09:45 → INTOOBSV 18:16 → EH 18:16 → 4W 22:55 → OBSVTOIN 08-12 11:34
PROVIDERS: ADMIT Internal Medicine; ATTEND Internal Medicine
PROC: 0S9N0ZZ Drainage of Left Metatarsal-Phalangeal Joint, Open Approach (ICD-10-PCS; principal; 2018-08-14 09:00)
DX: M00.9 Pyogenic arthritis, unspecified (principal); F19.20 Other psychoactive substance dependence, uncomplicated; M79.672 Pain in left foot; E11.8 Type 2 diabetes mellitus with unspecified complications; E78.5 Hyperlipidemia, unspecified; I10 Essential (primary) hypertension; D72.829 Elevated white blood cell count, unspecified; M54.89 Other dorsalgia; E66.9 Obesity, unspecified; F17.210 Nicotine dependence, cigarettes, uncomplicated; Z68.32 Body mass index [BMI] 32.0-32.9, adult; Z79.891 Long term (current) use of opiate analgesic
CPT/HCPCS: 01480; 36415; 80048; 80053; 80061; 80202; 82565; 82962; 83036; 83735; 85025; 85027; 85652; 86140; 87040; 87070; 87075; 87077; 87186; 87205; 96374; 96375; 99285; G0378; J0131; J0330; J1100; J1650; J1815; J2250; J2270; J2405; J2543; J2704; J2765; J3010; J3370; J3490; J7060

== ENCOUNTER → 2018-09-20 | Outpatient (CLI) | payer BC ==
--- NOTE | 2018-09-20 10:58 | RADIOLOGY REPORT (SQ) ---
EXAM DESCRIPTION: FOOT LEFT COMPLETE COMPLETED DATE/TIME: 09/20/2018 9:21 am REASON FOR STUDY: NON-PRS CHRONIC ULCER OTH PRT L FOOT LIMITED TO BRKDWN SKIN L97.521 NON-PRS CHRON IC ULCER OTH PRT L FOOT LIMITED TO BRKD COMPARISON: MRI left foot 08/11/2018 NUMBER OF VIEWS: Three views. TECHNIQUE: AP, lateral and oblique radiographic images acquired of the left foot. LIMITATIONS: None. FINDINGS: MINERALIZATION: Normal. BONES: No aggressive demineralization of the 1st metatarsal head. Bones are normal density. No acut e fracture. Tiny calcaneal spur at the Achilles attachment. JOINTS: No effusions. SOFT TISSUES: No soft tissue swelling. No foreign body. OTHER: No other significant finding. IMPRESSION: No aggressive demineralization of the 1st metatarsal worrisome for osteomyelitis by plai n film. TECHNICAL DOCUMENTATION: JOB ID: [id number] [employer]- All Rights Reserved Reading location - IP/workstation name: [email or web address]
== END ==
LOC: WC 09:12
PROVIDERS: ATTEND Nurse Practitioner Family
DX: L97.521 Non-pressure chronic ulcer of other part of left foot limited to breakdown of skin (principal)

== ENCOUNTER → 2019-08-26 | Outpatient (CLI) | payer BC ==
--- NOTE | 2019-08-26 13:24 | RADIOLOGY REPORT (SQ) ---
EXAM DESCRIPTION: HAND RIGHT 3 VIEWS COMPLETED DATE/TIME: 08/26/2019 10:46 am REASON FOR STUDY: PAIN IN RIGHT HAND M79.641 PAIN IN RIGHT HAND COMPARISON: None. EXAM PARAMETERS: NUMBER OF VIEWS: Three views. TECHNIQUE: AP, lateral and oblique radiographic images acquired of the right hand. LIMITATIONS: None. FINDINGS: MINERALIZATION: Normal. BONES: No acute fracture or dislocation. No worrisome bone lesions. Mild scattered osteophytes at t he interphalangeal joints. There is fluffy calcific density along the volar aspect at the level of t he 3rd MCP joint. JOINTS: No effusions. SOFT TISSUES: No soft tissue swelling. No foreign body. OTHER: No other significant finding. IMPRESSION: No acute bony abnormality. Fluffy calcific density along the volar aspect at the level of the 3rd MCP joint, possibly calcific t endinosis or heterotopic ossification. TECHNICAL DOCUMENTATION: JOB ID: [id number] [employer]- All Rights Reserved Reading location - IP/workstation name: [email or web address]
== END ==
LOC: OD 10:32
PROVIDERS: ATTEND Nurse Practitioner Family
DX: M79.641 Pain in right hand (principal)